=== PATIENT | male | born 1960 | race Caucasian/White ===

== ENCOUNTER 2018-09-23 01:25 | Outpatient (CLI) | payer BC, SELFPAY ==
--- NOTE | 2018-09-23 07:51 | DI.US_ITS ---
SYMPTOM/DIAGNOSIS: INFRAUMBILICAL 9TO RIGHT SIDE) PAIN SOFT TISSUE ULTRASOUND, LIMITED: 09/23 Limited soft tissue ultrasound was performed to evaluate question abdominal wall hernia in the infraumbilical and right infraumbilical region. No hernia identified by ultrasound criteria. If there is a high clinical suspicion of hernia additional evaluation with CT could be considered.
== END 2018-09-23 01:45 ==
PROVIDERS: PCP Family Medicine; Visit Provider Family Medicine
DX: R10.31 Right lower quadrant pain (principal); R10.815 Periumbilic abdominal tenderness
CPT/HCPCS: 76705

== ENCOUNTER 2019-03-24 10:10 | Outpatient (CLI) | payer BC, SELFPAY ==
[2019-03-24 12:43] LABS: Calculated LDL 148; Cholesterol 218 mg/dL (50-200); Glucose 90 mg/dL (70-100); HDL Cholesterol 57 mg/dL (40-60); Triglyceride 67 mg/dL (30-150)
[2019-03-27 10:46] LABS: PSA, Screening 0.8 ng/ml (0-3.5)
== END 2019-03-24 10:30 ==
PROVIDERS: PCP Family Medicine; Visit Provider Family Medicine
DX: Z13.1 Encounter for screening for diabetes mellitus (principal); Z13.220 Encounter for screening for lipoid disorders; Z12.5 Encounter for screening for malignant neoplasm of prostate
CPT/HCPCS: 36415; 80061; 82947; 83721; 84153

== ENCOUNTER 2019-12-04 08:11 | Emergency (ER) | payer BC, SELFPAY ==
[2019-12-04] VITALS (44 sets, daily range): BP systolic 103–156; BP diastolic 62–86; PULSE 42–61; RESP 11–20; TEMP 36.3–37; O2SAT 96–100
--- NOTE | 2019-12-04 08:15 | DI.RAD_ITS ---
EXAM: CHEST XRAY CLINICAL HISTORY: CHEST PAIN TECHNIQUE: 2D digital imaging was performed. COMPARISON: No exams were available for comparison FINDINGS: The cardiac and mediastinal contours have a normal appearance. The lungs are well inflated and clear . No infiltrate, effusion or pneumothorax is seen. No spine or rib fracture is identified. IMPRESSION: Negative chest x-ray.
[2019-12-04] MEDS: Aspirin 81 MG CHEW 324 MG CH (08:30)
[2019-12-04] MEDS: Ondansetron 4 MG/2 ML VIAL IVP (08:30)
[2019-12-04 08:32] LABS: Abs Immature Grans 0.01 k/cumm (0.0-0.09); Absolute Basophil Count 0.05 k/cumm (0.0-0.2); Absolute Eosinophil Count 0.23 k/cumm (0.0-0.7); Absolute Lymphocyte Count 2.18 k/cumm (1.2-3.4); Absolute Monocyte Count 0.61 k/cumm (0.11-0.7); Absolute Neutrophil Count 3.42 k/cumm (1.2-6.7); Basophils % 0.8; Eosinophils % 3.5; HCT 43.7 % (40.0-50.0); Immature Grans % 0.2 %; Lymphocytes % 33.5; Mean Corp. HGB Concentration 34.3 g/dL (32.0-36.0); Mean Corpuscular Hemoglobin 30.9 pg (27.0-33.0); Mean Corpuscular Volume 90.1 fL (80-95); Mean Platelet Volume 9.9 fL (8.0-11.0); Monocytes % 9.4; Neutrophils % 52.6; Platelet Count 217 x1000/uL (130-400); RBC 4.85 m/cumm (4.50-6.00); RBC Distribution Width 13.6 % (11.8-14.1)
--- NOTE | 2019-12-04 08:36 | NUR.NOTE ---
Nursing Note: 324 chewable baby ASA given at 0830, 1 nitro tab given SL at 0833, pain improved significantly per patient. Provider to fax EKG reports to [facility]. monitoring and evaluation advisor sinus jacinda HR 48. BP 115/77 after 1st nitro
--- NOTE | 2019-12-04 08:41 | NUR.NOTE ---
Nursing Note: second nitro tab given at 0840. HR remains sinus jacinda.
[2019-12-04 08:49] LABS: PTT Activated 22.2 sec (21.0-31.4); Prothrombin Time 10.5 sec (9.3-11.0)
[2019-12-04 08:51] LABS: ALT 28 U/L (16-63); AST 17 U/L (15-37); Albumin 3.9 g/dL (3.4-5.0); Alkaline Phosphatase 70 U/L (46-116); Anion Gap 9.3 mmol/L (3-11); BUN 21 mg/dL (7-18); Bilirubin, Total 0.5 mg/dL (0.2-1.0); CO2 27.7 mmol/L (21.0-32.0); CREATININE 1.25 mg/dL (0.70-1.30); Calcium 8.6 mg/dL (8.5-10.1); Chloride 105 mmol/L (98-107); Estimated GFR 59.12 (mL/min/1.73m2); Glucose 155 mg/dL (74-106); Potassium 3.4 mmol/L (3.5-5.1); Sodium 142 mmol/L (136-145); Total Protein 7.1 g/dL (6.4-8.2); Troponin I 0.05 ng/Ml (<0.06)
[2019-12-04 08:55] LABS: Magnesium 2.2 mg/dL (1.8-2.4); NT-proBNP 93 pg/mL (<300)
--- NOTE | 2019-12-04 08:59 | NUR.NOTE ---
Nursing Note: Chest pain down to 1/10 after 3rd nitro. pt c/o of nausea-- medicated with 4mg Zofran.awaiting [place] hear [place] [facility]
--- NOTE | 2019-12-04 09:00 | ED.GENADUL_ITS ---
Discharge Plan Disposition Patient Disposition: [facility] Condition: Serious Discharge Details Chief Complaint: Chest Pain Clinical Impression: Chest pain Primary Care Provider: Brain Tariq ED Provider: Jozef Herzog Home Meds and New Rx's Prescriptions: No Action multivitamin [Daily Vitamin] 1 EACH tablet 1 ea PO DAILY RF: 0 ibuprofen 200 MG capsule 3 - 4 tab PO DAILY PRNRF: 0 diphenhydramine HCl [Benadryl] 25 MG capsule 1 cap PRN PRNRF: 0 ascorbic acid (vitamin C) [Vitamin C] 500 mg Tablet 500 mg PO DAILY RF: 0 cholecalciferol (vitamin D3) [Vitamin D3] 10 mcg (400 unit) Tablet 400 unit PO DAILY RF: 0 Medical Decision Making 59-year-old gentleman who reports chest tightness, left arm discomfort that began around 7-730 this morning. He appears slightly diaphoretic. I did evaluate him upon presentation to room 4. IV access and EKG immediately obtained. EKG does reveal sinus bradycardia, ventricular rate of 56. There are some [address] elevation, peak T waves with reciprocal changes. Cardiac work-up initiated as well as a full dose aspirin and sublingual nitro 0.4?3 as needed. A call to [facility] cardiology has been placed for consultation of EKG findings and potential transfer. Upon reevaluation patient reports his pain has come down from a 6 down to a 4, heart rate of 49. He does tell me that he has been told he has a slow heart rate in the past. Blood pressure is also trending downward. Repeat EKG performed 850 reveals a sinus bradycardia, ventricular rate of 41. Continues to have [address] elevation with reciprocal changes and peaked T waves. Patient received all 3 nitros upon reevaluation reports his pain is actually resolved completely. It did come and go for short period of time but now has resolved completely. I was able to speak with cardiology [employer] INSPECTOR Jimmy. She recommended initiating heparin bolus and drip, 300 p.o. Plavix, 40 Lipitor, and potassium. Will hold on a beta-jessica given his bradycardia. If pain returns will initiate nitro drip. Plan is to transfer patient however it appears as though likely not until early afternoon. Medications ordered, plan discussed with patient and family. I was called back by MICHA Marquez, now recommends an additional 300 p.o. Plavix and they will take the patient directly to the [facility], requesting transfer now. Dr. Ivy will be the accepting. This plan was discussed with patient and family. No additional questions or concerns. All appropriate paperwork completed Medical Records Medical records reviewed: Yes I reviewed the patient's medical records. Imaging Data Radiologic Study: Attestation: I personally reviewed and interpreted this imaging study as follows: Imaging: X-Ray Radiologist's impression: Negative per radiology Lab Data Lab results reviewed: Yes I reviewed the patient's lab results. Lab results narrative: Laboratory Tests Range/Units 12/04/19 12/04/19 12/04/19 08:17 08:20 08:20 WBC (4.4-10.8) k/cumm RBC (4.50-6.00) m/cumm Hgb (13.5-17.5) g/dL Hct (40.0-50.0) % MCV (80-95) fL MCH (27.0-33.0) pg MCHC (32.0-36.0) g/dL RDW (11.8-14.1) % Plt Count (130-400) x1000/uL MPV (8.0-11.0) fL Immature Gran % % Neutrophils % Lymphocytes % Monocytes % Eosinophils % Basophils % Absolute Neutrophils (1.2-6.7) k/cumm Absolute Lymphocytes (1.2-3.4) k/cumm Absolute Monocytes (0.11-0.7) k/cumm Absolute Eosinophils (0.0-0.7) k/cumm Absolute Basophils (0.0-0.2) k/cumm PT (9.3-11.0) sec 10.5 INR (0.9-1.1) 1.0 APTT (21.0-31.4) sec 22.2 Sodium (136-145) mmol/L 142 Potassium (3.5-5.1) mmol/L 3.4 L Chloride (98-107) mmol/L 105 Carbon Dioxide (21.0-32.0) mmol/L 27.7 Anion Gap (3-11) mmol/L 9.3 BUN (7-18) mg/dL 21 H Creatinine (0.70-1.30) mg/dL 1.25 Estimated GFR/1.73 m2 (mL/min/1.73m2) 59.12 Glucose (74-106) mg/dL 155 H Calcium (8.5-10.1) mg/dL 8.6 Magnesium (1.8-2.4) mg/dL 2.2 Total Bilirubin (0.2-1.0) mg/dL 0.5 AST (15-37) U/L 17 ALT (16-63) U/L 28 Alkaline Phosphatase (46-116) U/L 70 Troponin I (<0.06) ng/Ml 0.05 NT-Pro-B Natriuret Pep (<300) pg/mL 93 Total Protein (6.4-8.2) g/dL 7.1 Albumin (3.4-5.0) g/dL 3.9 Range/Units 12/04/19 08:20 WBC (4.4-10.8) k/cumm 6.50 RBC (4.50-6.00) m/cumm 4.85 Hgb (13.5-17.5) g/dL 15.0 Hct (40.0-50.0) % 43.7 MCV (80-95) fL 90.1 MCH (27.0-33.0) pg 30.9 MCHC (32.0-36.0) g/dL 34.3 RDW (11.8-14.1) % 13.6 Plt Count (130-400) x1000/uL 217 MPV (8.0-11.0) fL 9.9 Immature Gran % % 0.2 Neutrophils % 52.6 Lymphocytes % 33.5 Monocytes % 9.4 Eosinophils % 3.5 Basophils % 0.8 Absolute Neutrophils (1.2-6.7) k/cumm 3.42 Absolute Lymphocytes (1.2-3.4) k/cumm 2.18 Absolute Monocytes (0.11-0.7) k/cumm 0.61 Absolute Eosinophils (0.0-0.7) k/cumm 0.23 Absolute Basophils (0.0-0.2) k/cumm 0.05 PT (9.3-11.0) sec INR (0.9-1.1) APTT (21.0-31.4) sec Sodium (136-145) mmol/L Potassium (3.5-5.1) mmol/L Chloride (98-107) mmol/L Carbon Dioxide (21.0-32.0) mmol/L Anion Gap (3-11) mmol/L BUN (7-18) mg/dL Creatinine (0.70-1.30) mg/dL Estimated GFR/1.73 m2 (mL/min/1.73m2) Glucose (74-106) mg/dL Calcium (8.5-10.1) mg/dL Magnesium (1.8-2.4) mg/dL Total Bilirubin (0.2-1.0) mg/dL AST (15-37) U/L ALT (16-63) U/L Alkaline Phosphatase (46-116) U/L Troponin I (<0.06) ng/Ml NT-Pro-B Natriuret Pep (<300) pg/mL Total Protein (6.4-8.2) g/dL Albumin (3.4-5.0) g/dL ECG Data Interpretation: EKG performed at 18. Reveals bradycardia, ventricular to 56. [address] elevation segments with peak T waves. Reciprocal changes present. HPI General Mode of arrival: ambulatory . Date/Time Provider Initiated Documentation: 12/04/19 08:17 . Limitations to Documentation: no limitations . Information obtained by: patient . HPI Narrative: This is a 59-year-old gentleman who presents to the ER with what he describes as centralized chest tightness which radiates to his left arm, currently a 6 out of 10. This pain began around 7-730 this morning and at that time was an 8 or 9 out of 10. He reports nausea and one episode of vomiting with this discomfort while he was driving to the ER. After vomiting he reports that his nausea resolved. There is no radiation of pain into his back. He denies any pain and does not describe the sensation as a ripping or tearing. He has a history of a hiatal hernia but does not believe this feels similarly. He reports drinking alcohol a few times a week but does not smoke. He states he had a similar episode maybe 20 years ago, had a stress test at that time, but denies any other episodes or history of cardiac disease. Denies any recent illness or trauma. Patient later tells me that he did have chest pain 2 or 3 days ago however that resolved within a matter of 5 minutes or so and did not seek medical attention at that time. Related Data Home Medications Medication Instructions Recorded Confirmed ibuprofen 3 - 4 tab PO DAILY PRN 08/04/13 12/04/19 multivitamin [Daily Vitamin] 1 ea PO DAILY 08/04/13 12/04/19 diphenhydramine HCl [Benadryl] 1 cap PRN PRN 05/17/15 12/04/19 ascorbic acid (vitamin C) [Vitamin 500 mg PO DAILY 12/04/19 12/04/19 C] cholecalciferol (vitamin D3) 400 unit PO DAILY 12/04/19 12/04/19 [Vitamin D3] Allergies Allergy/AdvReac Type Severity Reaction Status Date / Time atropine Allergy Intermediate Hives Unverified 03/24/19 09:35 diphenoxylate Allergy Intermediate Hives Unverified 03/24/19 09:35 General Stated Complaint: Chest Pain JAXON: 2 Review of Systems Constitutional Constitutional: Denies fatigue, Denies fever(s), Denies headache(s) and Denies weakness Eyes Eyes: Denies change in vision ENT Ears, Nose, Mouth, and Throat: Denies headache(s) and Denies sore throat Cardiovascular Cardiovascular: Reports chest pain, Denies edema, Denies irregular heart rhythm and Denies dyspnea Respiratory Respiratory: Denies cough and Denies dyspnea Gastrointestinal Gastrointestinal: Denies abdominal pain, Reports nausea and Reports vomiting Musculoskeletal Musculoskeletal: Denies myalgias, Denies numbness and Reports tingling (Left arm) Integumentary/Breasts Skin/Breast: Denies rash Neurologic Neurologic: Denies headache(s), Denies numbness, Reports tingling (Left arm) and Denies weakness Endocrine Endocrine: Denies fatigue [facility] Family History Brother Prostate cancer Social History Smoking/Tobacco Use Status: Never Drug use: Never Do you feel safe at home: Yes Do you feel safe in your relationship?: Yes Exam Const General: cooperative and diaphoretic (Slightly) Orientation: alert and awake HENMT Head: normal to inspection, normocephalic and atraumatic Mouth: oral mucosae normal and moist mucous membranes Throat: posterior oropharynx normal Eyes Conjunctivae: conjunctivae normal Sclera: sclerae normal Neck Neck: normal visual inspection, full ROM, trachea midline and supple Chest Chest: normal inspection of the chest Resp Effort & Inspection: normal respiratory effort and able to speak in complete sentences Auscultation: clear to auscultation bilaterally Cardio Rate: regular rate Rhythm: regular rhythm Pulses: radial pulses present, dorsalis pedis pulses present and normal peripheral pulses GI Inspection: normal to inspection Palpation: soft, not firm, no guarding, not rigid and nontender Auscultation: normal bowel sounds Skin General skin exam: no rashes or lesions noted Neuro General: alert, awake, moves all extremities and no focal motor deficits Sensory Exam: no sensory deficits noted Psych Appearance: grossly normal Mental Status: mental status grossly normal Course Vital Signs Vital signs: Vital Signs Temperature 36.3 C L 12/04/19 08:16 Pulse 55 L 12/04/19 08:16 Respiratory Rate 18 12/04/19 08:16 Blood Pressure 156/86 H 12/04/19 08:16 Pulse Oximetry 98 12/04/19 08:16 Temperature 36.3 C L 12/04/19 08:16 Temperature Source Temporal Artery Scan 12/04/19 08:16 Pulse 55 L 12/04/19 08:34 Respiratory Rate 18 12/04/19 08:34 Blood Pressure 156/86 H 12/04/19 08:34 Pulse Oximetry 98 12/04/19 08:34 Oxygen Delivery Method Room Air 12/04/19 08:34 Oxygen Flow Rate 0 12/04/19 08:34 Pain Level 8 12/04/19 08:16 Lab/Test Results Lab/Test Results: Laboratory Tests Range/Units 12/04/19 12/04/19 12/04/19 08:17 08:20 08:20 WBC (4.4-10.8) k/cumm RBC (4.50-6.00) m/cumm Hgb (13.5-17.5) g/dL Hct (40.0-50.0) % MCV (80-95) fL MCH (27.0-33.0) pg MCHC (32.0-36.0) g/dL RDW (11.8-14.1) % Plt Count (130-400) x1000/uL MPV (8.0-11.0) fL Immature Gran % % Neutrophils % Lymphocytes % Monocytes % Eosinophils % Basophils % Absolute Neutrophils (1.2-6.7) k/cumm Absolute Lymphocytes (1.2-3.4) k/cumm Absolute Monocytes (0.11-0.7) k/cumm Absolute Eosinophils (0.0-0.7) k/cumm Absolute Basophils (0.0-0.2) k/cumm PT (9.3-11.0) sec 10.5 INR (0.9-1.1) 1.0 APTT (21.0-31.4) sec 22.2 Sodium (136-145) mmol/L 142 Potassium (3.5-5.1) mmol/L 3.4 L Chloride (98-107) mmol/L 105 Carbon Dioxide (21.0-32.0) mmol/L 27.7 Anion Gap (3-11) mmol/L 9.3 BUN (7-18) mg/dL 21 H Creatinine (0.70-1.30) mg/dL 1.25 Estimated GFR/1.73 m2 (mL/min/1.73m2) 59.12 Glucose (74-106) mg/dL 155 H Calcium (8.5-10.1) mg/dL 8.6 Magnesium (1.8-2.4) mg/dL 2.2 Total Bilirubin (0.2-1.0) mg/dL 0.5 AST (15-37) U/L 17 ALT (16-63) U/L 28 Alkaline Phosphatase (46-116) U/L 70 Troponin I (<0.06) ng/Ml 0.05 NT-Pro-B Natriuret Pep (<300) pg/mL 93 Total Protein (6.4-8.2) g/dL 7.1 Albumin (3.4-5.0) g/dL 3.9 Range/Units 12/04/19 08:20 WBC (4.4-10.8) k/cumm 6.50 RBC (4.50-6.00) m/cumm 4.85 Hgb (13.5-17.5) g/dL 15.0 Hct (40.0-50.0) % 43.7 MCV (80-95) fL 90.1 MCH (27.0-33.0) pg 30.9 MCHC (32.0-36.0) g/dL 34.3 RDW (11.8-14.1) % 13.6 Plt Count (130-400) x1000/uL 217 MPV (8.0-11.0) fL 9.9 Immature Gran % % 0.2 Neutrophils % 52.6 Lymphocytes % 33.5 Monocytes % 9.4 Eosinophils % 3.5 Basophils % 0.8 Absolute Neutrophils (1.2-6.7) k/cumm 3.42 Absolute Lymphocytes (1.2-3.4) k/cumm 2.18 Absolute Monocytes (0.11-0.7) k/cumm 0.61 Absolute Eosinophils (0.0-0.7) k/cumm 0.23 Absolute Basophils (0.0-0.2) k/cumm 0.05 PT (9.3-11.0) sec INR (0.9-1.1) APTT (21.0-31.4) sec Sodium (136-145) mmol/L Potassium (3.5-5.1) mmol/L Chloride (98-107) mmol/L Carbon Dioxide (21.0-32.0) mmol/L Anion Gap (3-11) mmol/L BUN (7-18) mg/dL Creatinine (0.70-1.30) mg/dL Estimated GFR/1.73 m2 (mL/min/1.73m2) Glucose (74-106) mg/dL Calcium (8.5-10.1) mg/dL Magnesium (1.8-2.4) mg/dL Total Bilirubin (0.2-1.0) mg/dL AST (15-37) U/L ALT (16-63) U/L Alkaline Phosphatase (46-116) U/L Troponin I (<0.06) ng/Ml NT-Pro-B Natriuret Pep (<300) pg/mL Total Protein (6.4-8.2) g/dL Albumin (3.4-5.0) g/dL Critical Care Time Critical Care Time Critical Care Time: Yes Total Critical Care Time: 45 Attestation: Upon my evaluation, this patient had a high probability of clinically significant, life-threatening deterioration due to their current medical conditions, which required my direct attention, intervention, and personal management. I have personally provided greater than 30 minutes of critical care time exclusive of the time spend on separately billable procedures. Time includes obtaining a history, examining the patient, pulse oximetry, review of laboratory data, radiology results, discussion with consultants, arranging urgent treatment with development of a management plan, evaluation of patient's response to treatment, and monitoring for potential decompensation. Interventions were performed as documented above.
[2019-12-04] MEDS: Atorvastatin 40 MG TAB PO (11:28)
[2019-12-04] MEDS: Clopidogrel 300 MG TAB PO ×2 (11:29→11:44)
[2019-12-04] MEDS: Potassium Chloride 20 MEQ TABCR PO (11:29)
[2019-12-04] MEDS: Heparin 5,000 UNITS/ML VIAL 5000 UNITS IVP (11:45)
--- NOTE | 2019-12-04 12:06 | NUR.NOTE ---
Nursing Note: At 12:00 PT care report transferred to [facility] (Marsha). All PT care information, treatments, and interventions were transferred at this time. At the time of transfer the patient is alert and oriented, vitals stable. At 12:07 Pt care reports transferred to Brooklynn (RINA) with the labor contractor at [facility]. Again all Pt care information was transferred at this time.
--- NOTE | 2019-12-04 12:10 | NUR.NOTE ---
Nursing Note: At 1140 Pt reports increasing chest pain to a 5/10. Pt was administered 1 SL Nitro table prior to departure with EMS.
== END 2019-12-04 12:05 | disposition short-term general hospital (02) ==
PROVIDERS: Emergency Provider Physician Assistant; PCP Family Medicine
DX: R07.9 Chest pain, unspecified (principal); R00.1 Bradycardia, unspecified; R77.8 Other specified abnormalities of plasma proteins; R11.2 Nausea with vomiting, unspecified; R94.31 Abnormal electrocardiogram [ECG] [EKG]
CPT/HCPCS: 80053; 93005; 96365; 96375; 96376; 99291; 71046; 83735; 83880; 84484; 85025; 85610; 85730; 93010; J1644; J2405

== ENCOUNTER 2020-02-14 10:51 | Outpatient (CLI) | payer BC, SELFPAY ==
--- NOTE | 2020-02-14 11:30 | DI.RAD_ITS ---
EXAM: XR HIP RT COMPLETE AP PELVIS CLINICAL HISTORY: right hip pain, M25.551 TECHNIQUE: COMPARISON: No exams were available for comparison FINDINGS: Two views were obtained. There is mild narrowing of the cartilaginous joint spaces of both hips supe riorly. Minimal subchondral sclerosis of the acetabula noted. Findings are consistent with mild deg enerative changes. Mild DJD SI joints noted bilaterally as well. No other specific findings. IMPRESSION:
== END 2020-02-14 11:11 ==
PROVIDERS: PCP Family Medicine; Visit Provider Nurse Practitioner Family
DX: M25.551 Pain in right hip (principal); M16.0 Bilateral primary osteoarthritis of hip; M53.3 Sacrococcygeal disorders, not elsewhere classified
CPT/HCPCS: 73502

== ENCOUNTER 2021-07-12 11:42 | Emergency (ER) | payer BC, SELFPAY ==
[2021-07-12 12:14] VITALS: BP 125/80; PULSE 54; RESP 16; TEMP 36.7; O2SAT 99
--- NOTE | 2021-07-12 12:15 | DI.RAD_ITS ---
Exam(s) XR KNEE RT 3V AP,LAT,ROBERT EXAM: XR KNEE RT 3V AP,LAT,ROBERT CLINICAL HISTORY: injury. TECHNIQUE: 2D digital imaging was performed. COMPARISON: No exams were available for comparison FINDINGS: No evidence of fracture. No prominent joint effusion. Mild degenerative changes. Bone density normal. No osseous lesions IMPRESSION: No fracture evident. DATA REPOSITORY: RADIATION DOSE DELIVERED:
--- NOTE | 2021-07-12 13:24 | W.ED.GENAD ---
Discharge Plan Disposition Patient Disposition: HOME Condition: Stable Discharge Details Clinical Impression: Internal derangement of knee Primary Care Provider: Carla Otto ED Provider: Madelyn Sousa Home Meds and New Rx's Prescriptions: Continued nitroglycerin 0.4 mg tablet, sublingual 0.4 mg SL Q5-15M PRNRF: 0 lisinopril 5 mg tablet 5 mg PO DAILY RF: 0 aspirin [Adult Aspirin Regimen] 81 mg tablet,delayed release (DR/EC) 81 mg PO DAILY RF: 0 atorvastatin 80 mg tablet 80 mg PO QPM RF: 0 Brilinta 90 mg tablet 90 mg PO BID RF: 0 multivitamin [Daily Vitamin] 1 EACH tablet 1 ea PO DAILY RF: 0 cholecalciferol (vitamin D3) [Vitamin D3] 10 mcg (400 unit) Tablet 400 unit PO DAILY RF: 0 Discharge Instructions Instructions: Knee Pain (ED) Additional Instructions: Imaging is concerning for swelling as well as degenerative changes as we discussed. I am concerned about your meniscus. I would like for you to follow-up with orthopedics. Please call on Wednesday to schedule follow-up appointment. In the interim, please encourage rest, ice and elevation. You may use Tylenol as needed for discomfort. Please continue with bracing until reevaluated by orthopedics. If you develop any new or worsening symptoms care urgently once again. Referrals: Carla Otto NP [Primary Care Provider] - Discharge Data Discharge Date/Time-TO BE ENTERED AT DEPARTURE: 07/12/21 17:16 Medical Decision Making Patient is a pleasant 61-year-old male, accompanied by his , with plaints of right knee pain. Patient reports he has some discomfort in the right knee for the past week. However, this is greatly increased today when he was coming down a hill and he felt a pop. Indicates the anterior medial aspect of the knee as area of discomfort. States that this is also has been where he been having his low-level discomfort throughout the week. States that prior to today, the discomfort really limited his ability to kneel, squat to perform rotational movements. However, at today's incident, he has not been able to weight-bear at all. He denies any catching or locking. No fevers or chills. No previous surgeries. Did not actually fall, did not suffer any significant trauma. On exam, patient appears nontoxic. He does appear uncomfortable, particularly with any type of movement of the knee. However, he does seem to have difficulty getting comfortable and staying in 1 position for an extended period of time. She has 2+ distal pulses. Sensation is intact. Good range of motion the ankle. Calf is soft and nontender. He indicates the medial aspect of the knee is area of discomfort does have tenderness with palpation along the joint line of this region. No pain with patella palpation or straight leg raise. No significant effusion. Able to flex approximately 90 degrees. Ligamentously intact with varus and valgus stress testing as well as anterior posterior drawer testing. Unable perform Hafsa's exam. I do not see evidence to suggest knee dislocation. Was focal area of tenderness, pain with squatting and kneeling, I am concerned for potential meniscal injury. He has not had any catching or locking. Will give acetaminophen for discomfort and obtain x-ray to evaluate for potential bony abnormality. FINDINGS: Bones/joints: Mild diffuse patellar spurring and spurring of the femoral condyles and tibial spines. No medial or lateral marginal spurring. No suspicious bone lucency, joint effusion or joint body. There is subtle deformity of the posterolateral tibia best seen on the lateral view that may represent a very small nondisplaced fracture. Soft tissues: Normal. IMPRESSION: 1. Subtle posterolateral tibia deformity that may represent a nondisplaced acute fracture and for which unenhanced right knee CT is recommended. 2. Mild multilevel degenerative spurring. I discussed these findings with the patient. This does not really correlate with the area of discomfort. However, patient has been having such significant comfort with any type of weightbearing I feel that further evaluation would be appropriate. He and I discussed risk and benefits moving forward with the CT as recommended. He is in agreement this plan. FINDINGS: Limitations: None. Bones/joints: No acute fracture. Lateral patellofemoral joint space narrowing and sclerosis with patellofemoral degenerative spurring, greatest laterally but seen at other levels. Minimal weightbearing femoral degenerative spurring. There are a few calcified bodies in the posterolateral knee measuring up to 3 mm and approaching the tibiofibular joint. No suspicious bone lucency. Very small non layering knee joint effusion. Soft tissues: Normal. Vasculature: Scattered peripheral arterial calcification proximal and distal to the level of the knee. IMPRESSION: 1. Negative for fracture. No fracture in the posterolateral tibia. 2. Small knee joint effusion, patellofemoral degenerative change with mild lateral subluxation, also very mild weight-bearing knee degenerative spurring and small calcified joint bodies in the posterolateral knee region 3. Incidentally noted peripheral arterial disease. Discussed the findings with the patient. I advised that I remain concerned for potential meniscal injury. Diagnosed with internal derangement at this time. I advised that his exam may be able to be more thorough after his initial discomfort has subsided some. I encouraged rest, ice, elevation. He will continue with Tylenol as needed for discomfort. Patient is anticoagulated and I did advise against continuing the ibuprofen. We will place in a hinged knee brace for support. I advised that he follow-up with orthopedics. He will call Wednesday to schedule follow-up appointment. Advised that he may use crutches as needed to help with comfort with ambulation. However, and hoping that the hinged knee brace will patient in alleviating his discomfort. Return precautions were discussed. All questions and concerns were addressed and he is in agreement with plan. HPI General Mode of arrival: ambulatory. Date/Time Provider Initiated Documentation: 07/12/21 11:52. Limitations to Documentation: no limitations. Information obtained by: patient, family () and RN notes reviewed. History of Present Illness 61 year old M presents to the emergency department with the chief complaint of right knee pain, described as severe, with intensity rated at 8. Quality is described as aching, and is localized to the right and lower extremity. Patient reports no radiation. Patient started experiencing this week(s) (1) and it has been constant. Immobilization improves symptom(s), Movement worsens symptoms . Patient notes no other symptoms.. Patient did receive the following treatments prior to arrival, NSAID Related Data Home Medications Medication Instructions Recorded Confirmed multivitamin [Daily Vitamin] 1 ea PO DAILY 08/04/13 07/12/21 cholecalciferol (vitamin D3) 400 unit PO DAILY 12/04/19 07/12/21 [Vitamin D3] aspirin 81 mg tablet,delayed 81 mg PO DAILY 02/14/20 07/12/21 release atorvastatin 80 mg tablet 80 mg PO QPM 02/14/20 07/12/21 lisinopril 5 mg tablet 5 mg PO DAILY 02/14/20 07/12/21 ticagrelor 90 mg tablet 90 mg PO BID 02/14/20 07/12/21 nitroglycerin 0.4 mg sublingual 0.4 mg SL Q5-15M PRN 04/16/20 07/12/21 tablet Allergies Allergy/AdvReac Type Severity Reaction Status Date / Time atropine Allergy Intermediate Hives Verified 07/12/21 12:19 diphenoxylate Allergy Intermediate Hives Verified 07/12/21 12:19 General Stated Complaint: Orthopedic JAXON: 4 Review of Systems Constitutional Constitutional: Reports as per HPI, Denies chills, Denies fever(s), Denies headache(s) and Denies weakness ENT Ears, Nose, Mouth, and Throat: Denies headache(s) Respiratory Respiratory: Reports as per HPI and Denies cough Musculoskeletal Musculoskeletal: Reports as per HPI and Denies tingling Integumentary/Breasts Skin/Breast: Reports as per HPI, Denies rash and Denies wounds Neurologic Neurologic: Reports as per HPI, Denies headache(s), Denies tingling, Denies paresthesias and Denies weakness [facility] Medical History (Updated 07/12/21 @ 16:14 by DANIELLE Cameron) CAD (coronary artery disease) NSTEMI 12/2019, s/p NYA to LAD and RPDA. Followed by [facility] Cardiology Hyperlipidemia Major depressive disorder NSTEMI (non-ST elevated myocardial infarction) (~12/2019) Cardiac cath showed total occlusion of LAD, 60-70% lesion of RPDA s/p stent Stented coronary artery NYA to LAD and RPDA Surgical History History of percutaneous coronary intervention (12/04/19) NYA to mid segment of LAD and RPDA Family History Brother Prostate cancer Social History Smoking/Tobacco Use Status: Never Smoking risk assessment performed?: Yes Alcohol Intake: current Alcohol Intake frequency: a few times a month Alcohol type: beer and wine Drug use: Never Substance use type: does not use Do you feel safe at home: Yes Do you feel safe in your relationship?: Yes Exam Const General: cooperative, healthy appearing, uncomfortable, no acute distress, well developed and well groomed Nutritional Appearance: average body habitus and well nourished Orientation: alert and awake Resp Effort & Inspection: normal respiratory effort, able to speak in complete sentences and no respiratory distress Cardio Rate: regular rate Rhythm: regular rhythm Skin General skin exam: no rashes or lesions noted Lesions: no lesions Rashes: no rashes Trauma: no lacerations or abrasions Neuro General: patient alert and patient awake Cognition: normal cognition Speech: speech normal Motor: muscle tone normal throughout Sensory Exam: no sensory deficits noted Extrem Knee images: 1. Area of discomfort. Patient has 2+ distal pulses. Sensation is intact. Full range of motion the ankle. Calf is soft and nontender. No palpable cord. Patient is full extension of the knee. Flexion is limited to approximately 90 degrees. No significant effusion. No erythema or warmth over the knee. He is point tender over this area. He is intact with varus valgus stress testing as well as [place] exam. I was unable to complete Hafsa's exam secondary to discomfort. He is able to straight leg raise. No pain on palpation over the patella. No palpable deformity. Psych Appearance: grossly normal and well kempt Mental Status: mental status grossly normal Speech and Movement: speech and movement normal Course Vital Signs Vital signs: Vital Signs Temperature 36.7 C 07/12/21 12:14 Pulse 54 L 07/12/21 12:14 Respiratory Rate 16 07/12/21 12:14 Blood Pressure 125/80 07/12/21 12:14 Pulse Oximetry 99 07/12/21 12:14 Temperature 36.7 C 07/12/21 12:14 Temperature Source Tympanic 07/12/21 12:14 Pulse 54 L 07/12/21 12:14 Respiratory Rate 16 07/12/21 12:14 Respiratory Effort Non-Labored 07/12/21 12:17 Blood Pressure 125/80 07/12/21 12:14 Blood Pressure Position Sitting 07/12/21 12:14 Pulse Oximetry 99 07/12/21 12:14 Oxygen Delivery Method Room Air 07/12/21 12:14 Oxygen Flow Rate 0 07/12/21 12:14 Pain Level 8 07/12/21 12:14 PAWSS Have you Been Recently Intoxicated or Drunk Within the Last 30 days?: No Have you Ever Experienced Previous Episodes of Alcohol Withdrawal?: No Have you ever Experienced Withdrawal Seizures?: No Have you ever Experienced Delirium Tremens(DT)s?: No Have you ever undergone Alcohol Rehabilitation Treatment (i.e, inpt ot outpatient treatment programs)?: No Have you ever Experienced Blackouts?: No Have you ever Combined Alcohol with other Downers within the last 90 days?: No Have you ever Combined Alcohol with any other Substance of Abuse during the last 90 days?: No Positive Blood Alcohol level on Presentation? [PCS.BAL]: No Evidence of Increased Autonomic Activity (i.e. HR>120, tremor, sweating, agitation, nausea)?: No Result: 0
[2021-07-12] MEDS: Acetaminophen 500 MG TAB 1000 MG PO (14:01)
--- NOTE | 2021-07-12 14:11 | DI.VRAD_ITS ---
PROCEDURE INFORMATION: Exam: XR Right Knee Exam date and time: 07/12/2021 12:24 PM Age: 61 years old Clinical indication: Patient HX: Injury trauma, right knee TECHNIQUE: Imaging protocol: XR Right knee. Views: 3 views. COMPARISON: No relevant prior studies available. FINDINGS: Bones/joints: Mild diffuse patellar spurring and spurring of the femoral condyles and tibial spines. No medial or lateral marginal spurring. No suspicious bone lucency, joint effusion or joint body. There is subtle deformity of the posterolateral tibia best seen on the lateral view that may represent a very small nondisplaced fracture. Soft tissues: Normal. IMPRESSION: 1. Subtle posterolateral tibia deformity that may represent a nondisplaced acute fracture and for which unenhanced right knee CT is recommended. 2. Mild multilevel degenerative spurring. Dictated and Authenticated by: Daniel Hernandez MD. Ordering:[email or web address].VERNON Provider Temporary
--- NOTE | 2021-07-12 14:15 | DI.CT_ITS ---
Exam(s) CT LOWER EXTREMITY RT WO EXAM: CT LOWER EXTREMITY RT WO CLINICAL HISTORY: medial pain, further eval after xr abnormality. TECHNIQUE: Imaging Protocol: Axial computed tomography images with coronal and sagittal reformatted images were created and reviewed. CONTRAST MATERIAL: Intravenous: None COMPARISON: X-rays earlier same day FINDINGS: There is no evidence of fracture. There are moderate degenerative changes in the medial compartment. More advanced degenerative changes in the patellofemoral compartment. There is a joint effusion no lupe. No significant osseous lesions. Vascular calcification noted. IMPRESSION: No fracture evident. However, there does appear to be a joint effusion. This may signify an internal derangement. Clinic ally indicated follow-up MRI can be performed for added sensitivity and specificity. RADIATION DOSE DELIVERED: 340.59mGy.cm Total DLP DATA REPOSITORY: All CT scans at this facility are submitted to the National Radiology Data Registry (NRDR) Dose Index Registry (DIR) with the [employer] ([employer]). RADIATION OPTIMIZATION: All CT scans at this facility use at least one of these dose optimization te chniques: automated exposure control; mA and/or kV adjustment per patient size (includes targeted exa ms where dose is matched to clinical indication); or iterative reconstruction.
--- NOTE | 2021-07-12 15:25 | DI.VRAD_ITS ---
PROCEDURE INFORMATION: Exam: CT Right Lower Extremity Without Contrast, Knee Exam date and time: 07/12/2021 2:20 PM Age: 61 years old Clinical indication: Pain; Knee; Right; Patient HX: CT recommended by vrad to f/u possible abnormality seen on x-ray. TECHNIQUE: Imaging protocol: CT of the Right lower extremity without contrast was performed. Exam focused on the knee. Radiation optimization: All CT scans at this facility use at least one of these dose optimization techniques: automated exposure control; mA and/or kV adjustment per patient size (includes targeted exams where dose is matched to clinical indication); or iterative reconstruction. COMPARISON: CR XR KNEE RT 3V AP,LAT,ROBERT 07/12/2021 12:42 PM FINDINGS: Limitations: None. Bones/joints: No acute fracture. Lateral patellofemoral joint space narrowing and sclerosis with patellofemoral degenerative spurring, greatest laterally but seen at other levels. Minimal weight-bearing femoral degenerative spurring. There are a few calcified bodies in the posterolateral knee measuring up to 3 mm and approaching the tibiofibular joint. No suspicious bone lucency. Very small non layering knee joint effusion. Soft tissues: Normal. Vasculature: Scattered peripheral arterial calcification proximal and distal to the level of the knee. IMPRESSION: 1. Negative for fracture. No fracture in the posterolateral tibia. 2. Small knee joint effusion, patellofemoral degenerative change with mild lateral subluxation, also very mild weight-bearing knee degenerative spurring and small calcified joint bodies in the posterolateral knee region 3. Incidentally noted peripheral arterial disease. Dictated and Authenticated by: Daniel Hernandez MD. Ordering:AZIZA Joshi MD
[2021-07-12 15:51] VITALS: BP 117/70; PULSE 57; RESP 16; TEMP 36.6; O2SAT 95
== END 2021-07-12 17:16 | disposition home or self-care (01) ==
PROVIDERS: Emergency Provider Physician Assistant; PCP Nurse Practitioner Family
DX: M23.8X1 Other internal derangements of right knee (principal)
CPT/HCPCS: 73562; 99284; 73700; 99283

== ENCOUNTER 2022-04-01 12:24 | Emergency (ER) | payer BC, SELFPAY ==
[2022-04-01] VITALS (35 sets, daily range): BP systolic 116–136; BP diastolic 58–72; PULSE 48–62; RESP 9–21; TEMP 36.5; O2SAT 95–100
--- NOTE | 2022-04-01 12:30 | RT.EKG_ITS ---
APPROVED REPORT Exam: Resting ECG Reason for Exam: chest pain Patient Location: E HR:55 bpm ECG Measurements Heart Rate 55 AXIS AZ 198 P 19 QRSd 104 QRS -4 QT 477 T 17 QTc 455 Conclusion Sinus bradycardia...rate< 60
[2022-04-01] MEDS: Meclizine 25 MG TAB PO (13:09)
[2022-04-01] MEDS: Ondansetron 4 MG/2 ML VIAL IVP (13:09)
[2022-04-01 13:10] LABS: Abs Immature Grans 0.04 10^3/uL (0.0-0.06); Absolute Basophil Count 0.06 10^3/uL (0.0-0.2); Absolute Eosinophil Count 0.28 10^3/uL (0.0-0.7); Absolute Lymphocyte Count 2.56 10^3/uL (1.2-3.4); Absolute Monocyte Count 0.81 10^3/uL (0.1-0.8); Absolute Neutrophil Count 4.85 10^3/uL (1.2-6.7); Basophils % 0.7; Eosinophils % 3.3; HCT 43.5 % (40.0-50.0); HGB 14.8 g/dL (13.5-17.5); Immature Grans % 0.5; Lymphocytes % 29.8; MCH 30.7 pg (27.0-33.0); MCV 90 fL (80-95); Monocytes % 9.4; Neutrophils % 56.3; Platelet Count 202 10^3/uL (130-400); RBC 4.82 10^6/uL (4.36-5.78); RDW-SD 43.1 fL
[2022-04-01 13:28] LABS: ALT 33 U/L (16-63); AST 23 U/L (15-37); Albumin 4.2 g/dL (3.4-5.0); Alkaline Phosphatase 76 U/L (46-116); Anion Gap 11.2 mmol/L (3-11); BUN 19 mg/dL (7-18); Bilirubin, Total 0.9 mg/dL (0.2-1.0); CO2 24.8 mmol/L (21.0-32.0); CREATININE 0.9 mg/dL (0.70-1.30); Calcium 9.2 mg/dL (8.5-10.1); Chloride 102 mmol/L (98-107); Glucose 117 mg/dL (74-106); Magnesium 2.1 mg/dL (1.8-2.4); Potassium 3.3 mmol/L (3.5-5.1); Sodium 138 mmol/L (136-145); Total Protein 7.5 g/dL (6.4-8.2); Troponin I < 50 ng/L (<or=60)
--- NOTE | 2022-04-01 13:47 | DI.CT_ITS ---
Exam(s) CT HEAD WO EXAM: CT HEAD WO CLINICAL HISTORY: Dizziness, left arm numbness. TECHNIQUE: Imaging Protocol: Axial computed tomography images with coronal and sagittal reformatted images were created and reviewed COMPARISON: No exams were available for comparison FINDINGS: The ventricular system is normal in appearance. No evidence of acute intracranial hemorrhage, mass effect, or midline shift. The orbital structures are unremarkable. The temporal bone structures appear intact. Calvarium: Normal. Visualized Paranasal sinuses/Mastoids: Clear. IMPRESSION: Normal cranial CT. RADIATION DOSE DELIVERED: 901.09mGy.cm Total DLP 901.09mGy.cm Total DLP !Error CTDIvol DATA REPOSITORY: All CT scans at this facility are submitted to the National Radiology Data Registry (NRDR) Dose Index Registry (DIR) with the [employer] (ACR). RADIATION OPTIMIZATION: All CT scans at this facility use at least one of these dose optimization te chniques: automated exposure control; mA and/or kV adjustment per patient size (includes targeted exa ms where dose is matched to clinical indication); or iterative reconstruction.
[2022-04-01] MEDS: POTASSIUM CHLORIDE 20 MEQ, POTASSIUM CHLORIDE 10 MEQ 30 MEQ PO (14:48)
[2022-04-01] MEDS: Normal Saline 500 ML 1000 ML IV (14:51)
[2022-04-01 15:45] LABS: Troponin I < 50 ng/L (<or=60)
--- NOTE | 2022-04-01 16:02 | ED.GENADUL_ITS ---
Discharge Plan Disposition Patient Disposition: HOME Condition: Stable Discharge Details Clinical Impression: Benign paroxysmal positional vertigo Primary Care Provider: Carla Otto ED Provider: Archie Arshad Home Meds and New Rx's Prescriptions: New meclizine 25 mg tablet 25 - 50 mg PO TID PRN (Reason: dizziness) Qty: 20 0RF ondansetron 4 mg tablet,disintegrating 4 mg PO Q6H PRN (Reason: nausea and vomiting) Qty: 10 0RF No Action nitroglycerin 0.4 mg tablet, sublingual 0.4 mg SL Q5-15M PRN Rx Instructions: do not exceed 3 doses per episode lisinopril 5 mg tablet 5 mg PO DAILY aspirin [Adult Aspirin Regimen] 81 mg tablet,delayed release (DR/EC) 81 mg PO DAILY atorvastatin 80 mg tablet 80 mg PO QPM Brilinta 90 mg tablet 90 mg PO BID multivitamin [Daily Vitamin] 1 EACH tablet 1 ea PO DAILY cholecalciferol (vitamin D3) [Vitamin D3] 10 mcg (400 unit) Tablet 400 unit PO DAILY Discharge Instructions Additional Instructions: Feel free to return to the emergency department for any new or significant worsening of symptoms otherwise take medication as needed stay well-hydrated and get plenty of rest. Over the next 3 days please refrain from any rapid position changes or twisting motion of your head or body. Please follow-up with your primary care provider in the next week for reassessment if not improving. Referrals: Carla Otto, ASSOCIATE PROFESSOR OF MANAGEMENT [Primary Care Provider] - 1 week (As needed for reassessment) Discharge Data Discharge Date/Time-TO BE ENTERED AT DEPARTURE: 04/01/22 16:31 Medical Decision Making Patient presenting to emergency department for chief complaint of dizziness, nausea, and some chest discomfort radiating down the left arm. He states that this all started when attempting to get up from a seated position during a meeting. Patient does state significant cardiac history with stent placement. Physical exam shows a acutely ill individual with significant nausea with any movement. If patient remains still symptoms are better. Physical exam is otherwise unremarkable. Suspect vertigo but given patient's cardiac history with chest pain radiating down arm for a brief moment and dizziness will perform screening labs including troponin, EKG, and head CT scan given vascular history. Pending results we will give Zofran and meclizine along with IV fluids. Please see physician interpretation for full interpretation of EKG but patient appears to be in sinus bradycardia with no worrisome acute ischemic findings. Review of labs show unremarkable CBC, CMP with slightly low potassium, low elevated anion gap and BUN otherwise unremarkable CMP with nondetectable troponin although labs are unremarkable. Will replete low potassium with oral potassium Review of CT scan and speaking with radiologist Head CT is unremarkable for acute findings. Patient reassessed and is significantly more improved. Hints exam was performed at this time and is positive for peripheral source with lateralization to the left ear. Do not feel that any further imaging or work-up is needed. Still do still plan on performing delta troponin due to cardiac history Delta troponin is also nondetectable. Patient reassessed and states continued improvement. Patient was prescribed Zofran and meclizine also discussed with patient close monitoring of symptoms along with return and follow-up precautions. After discussion of diagnosis and plan of care patient has no further needs, questions, or concerns and states clear understanding to return to the emergency department for any worsening symptoms. This documentation was generated using [employer] dictation system, please disregard any oddities of phrase or misspellings. Imaging Data Radiologic Study: Imaging: CT Scan Radiologist's impression: FINDINGS: The ventricular system is normal in appearance. No evidence of acute intracranial hemorrhage, mass effect, or midline shift. The orbital structures are unremarkable. The temporal bone structures appear intact. Calvarium: Normal. Visualized Paranasal sinuses/Mastoids: Clear. IMPRESSION: Normal cranial CT. HPI General Mode of arrival: ambulatory . Date/Time Provider Initiated Documentation: 04/01/22 12:50 . Limitations to Documentation: no limitations . Information obtained by: patient and RN notes reviewed . History of Present Illness 62 year old M presents to the emergency department with the chief com plaint of Dizziness, slight chest tightness, nausea, described as moderate, with intensity rated at 1. Quality is described as dull, and is localized to the chest. Patient reports no radiation. Patient started experiencing this hour(s) (1) and it has been constant. No relieving factors improve symptom(s), Movement worsens symptoms (getting up from table) . Patient did receive the following treatments prior to arrival, none Related Data Home Medications Medication Instructions Recorded Confirmed multivitamin (Daily Vitamin tablet) 1 ea PO DAILY 08/04/13 04/03/22 cholecalciferol (vitamin D3) 10 400 unit PO DAILY 12/04/19 04/03/22 mcg (400 unit) tablet (Vitamin D3) aspirin 81 mg tablet,delayed 81 mg PO DAILY 02/14/20 04/03/22 release (Adult Aspirin Regimen) atorvastatin 80 mg tablet 80 mg PO QPM 02/14/20 04/03/22 lisinopril 5 mg tablet 5 mg PO DAILY 02/14/20 04/03/22 ticagrelor 90 mg tablet (Brilinta) 90 mg PO BID 02/14/20 04/03/22 nitroglycerin 0.4 mg sublingual 0.4 mg sublingual Q5-15M PRN 04/16/20 04/03/22 tablet meclizine 25 mg tablet 25 - 50 mg PO TID PRN dizziness 04/01/22 04/03/22 #20 tabs ondansetron 4 mg disintegrating 4 mg PO Q6H PRN nausea and 04/01/22 04/03/22 tablet vomiting #10 tabs Previous Rx's Medication Instructions Recorded meclizine 25 mg tablet 25 - 50 mg PO TID PRN dizziness 04/01/22 #20 tabs ondansetron 4 mg disintegrating 4 mg PO Q6H PRN nausea and 04/01/22 tablet vomiting #10 tabs Allergies Allergy/AdvReac Type Severity Reaction Status Date / Time atropine Allergy Intermediate Hives Verified 04/03/22 12:52 diphenoxylate Allergy Intermediate Hives Verified 04/03/22 12:52 General Stated Complaint: Chest Pain JAXON: 4 Review of Systems Constitutional Constitutional: Denies chills, Denies fever(s), Denies frequent falls and Denies headache(s) Eyes Eyes: Denies change in vision and Denies loss of vision ENT Ears, Nose, Mouth, and Throat: Reports dizziness, Denies ear discharge, Denies otalgia, Denies facial pain, Denies headache(s), Reports hearing loss and Denies neck pain Cardiovascular Cardiovascular: Reports chest pain, Denies syncope, Denies rapid heart rate and Denies dyspnea Respiratory Respiratory: Denies dyspnea Gastrointestinal Gastrointestinal: Denies abdominal pain, Reports nausea and Denies vomiting Musculoskeletal Musculoskeletal: Denies abnormal gait, Denies back pain, Denies muscle weakness, Denies neck pain, Denies numbness and Denies tingling Integumentary/Breasts Skin/Breast: Denies rash Neurologic Neurologic: Reports as per HPI, Denies abnormal gait, Denies confusion, Reports dizziness, Denies syncope, Denies frequent falls, Denies headache(s), Denies localized weakness, Denies loss of vision, Denies memory loss, Denies numbness, Denies convulsions and Denies tingling Psychiatric Psychiatric: Denies confusion and Denies memory loss [facility] All Active Problems Benign paroxysmal positional vertigo (Acute) Internal derangement of knee (Acute) Hyperlipidemia (Chronic) CAD (coronary artery disease) (Chronic) NSTEMI 12/2019, s/p NYA to LAD and RPDA. [place] [facility] [place] Major depressive disorder (Chronic) Medical History NSTEMI (non-ST elevated myocardial infarction) (~12/2019) Cardiac cath showed total occlusion of LAD, 60-70% lesion of RPDA s/p stent Surgical History History of percutaneous coronary intervention (12/04/19) NYA to mid segment of LAD and RPDA S/P bilateral inguinal hernia repair S/P vasectomy Family History Mother Heart disease Father , 95 Heart disease Myocardial infarction Brother No problems noted. Brother Prostate cancer Sister Heart disease Myocardial infarction Sister Cancer Sister Diabetes Son No problems noted. Son , 24 from ski accident No problems noted. Son Type 1 diabetes mellitus Daughter Meniere syndrome Daughter No problems noted. Maternal Grandfather No problems noted. Maternal Grandmother Heart disease Paternal Grandfather Heart disease Myocardial infarction Paternal Grandmother No problems noted. Social History Smoking/Tobacco Use Status: Never Second Hand Exposure: Yes Smoking risk assessment performed?: Yes Alcohol Intake: current Alcohol Intake frequency: a few times a week Alcohol type: beer and wine Drug use: Never Substance use type: does not use Caregiver/Support person: No Household members: spouse and children Housing: house Communication Needs: None Do you need help understanding health information?: Rarely Pets and animals: Yes Pets and animals: cat(s) and dog(s) Sexually active: Yes Do you think of yourself as: straight/heterosexual Current gender identity: male What is your relationship status?: How often do you talk on the phone with friends or family?: once per week How often do you attend temple or evangelical services?: 4 or more times per year Do you belong to any clubs or organized social groups?: yes Panel score (0-1 are the most socially isolated patients): 3 What type of physical activity do you participate in: walking Duration: 15-30 minutes/day Frequency: 3-4 times per week Francisca/Rastafari: Buddhist Special francisca needs: No Seatbelt use: always Drive intox or ride w/intox peg driver: No Do you feel safe at home: Yes Do you feel safe in your relationship?: Yes Exam Const General: cooperative and well groomed Orientation: alert, awake and oriented x3 HENMT Head: normal to inspection Ears: TM normal on the right and hearing grossly impaired on the left Face and sinus: normal facial exam Mouth: oral mucosae normal and moist mucous membranes Throat: posterior oropharynx normal Eyes Visual Pisano: normal visual pisano by confrontation Alignment and Position: alignment normal Periorbital: periorbital findings normal Eyelids: eyelids normal Sclera: sclerae normal Cornea: corneas normal Pupils: PERRL EOM: EOM intact bilaterally and nystagmus Neck Neck: normal visual inspection, full ROM, no lymphadenopathy and no meningeal signs Resp Effort & Inspection: normal respiratory effort and able to speak in complete sentences Auscultation: clear to auscultation bilaterally Cardio Rate: regular rate Rhythm: regular rhythm Heart Sounds: S1 normal and S2 normal Neuro General: patient alert, patient awake, patient oriented x3, gait normal, tone normal, moves all extremities, CN's II-XI intact bilaterally and not confused Cranial Nerves: nystagmus Cognition: normal cognition Speech: speech normal Motor: muscle tone normal throughout, strength 5/5 throughout, no pronator dri ft, no movement abnormalities noted and no fasciculations Sensory Exam: no sensory deficits noted Course Vital Signs Vital signs: Vital Signs Temperature 36.5 C 04/01/22 12:25 Pulse 57 L 04/01/22 12:25 Respiratory Rate 16 04/01/22 12:25 Blood Pressure 127/72 04/01/22 12:25 Pulse Oximetry 100 04/01/22 12:25 Temperature 36.5 C 04/01/22 12:25 Temperature Source Temporal Artery Scan 04/01/22 12:25 Pulse 52 L 04/01/22 15:30 Pulse 53 L 04/01/22 15:40 Respiratory Rate 15 04/01/22 15:40 Respiratory Effort Non-Labored 04/01/22 12:48 Respiratory Depth Normal 04/01/22 12:48 Respiratory Pattern Normal 04/01/22 12:48 Blood Pressure 122/65 04/01/22 15:30 Blood Pressure Mean 78 04/01/22 15:30 Blood Pressure Position Supine 04/01/22 12:25 Pulse Oximetry 99 04/01/22 15:40 Oxygen Delivery Method Room Air 04/01/22 12:25 Oxygen Flow Rate 0 04/01/22 12:25 Pain Level 1 04/01/22 12:25 Lab/Test Results Lab/Test Results: Laboratory Tests Range/Units 04/01/22 04/01/22 04/01/22 12:10 12:10 15:09 WBC (4.4-10.8) 10^3/uL 8.60 RBC (4.36-5.78) 10^6/uL 4.82 Hgb (13.5-17.5) g/dL 14.8 Hct (40.0-50.0) % 43.5 MCV (80-95) fL 90 MCH (27.0-33.0) pg 30.7 MCHC (32.0-36.0) % 34.0 RDW (11.8-14.1) % 13.0 Plt Count (130-400) 10^3/uL 202 MPV (8.0-11.0) fL 10.0 Immature Gran % 0.5 Neutrophils % 56.3 Lymphocytes % 29.8 Monocytes % 9.4 Eosinophils % 3.3 Basophils % 0.7 Nucleated RBC % (0.0-0.3) % 0.0 Absolute Neutrophils (1.2-6.7) 10^3/uL 4.85 Absolute Lymphocytes (1.2-3.4) 10^3/uL 2.56 Absolute Monocytes (0.1-0.8) 10^3/uL 0.81 H Absolute Eosinophils (0.0-0.7) 10^3/uL 0.28 Absolute Basophils (0.0-0.2) 10^3/uL 0.06 Sodium (136-145) mmol/L 138 Potassium (3.5-5.1) mmol/L 3.3 L Chloride (98-107) mmol/L 102 Carbon Dioxide (21.0-32.0) mmol/L 24.8 Anion Gap (3-11) mmol/L 11.2 H BUN (7-18) mg/dL 19 H Creatinine (0.70-1.30) mg/dL 0.9 Estimated GFR/1.73 m2 (mL/min/1.73m2) >= 60.00 Glucose (74-106) mg/dL 117 H Calcium (8.5-10.1) mg/dL 9.2 Magnesium (1.8-2.4) mg/dL 2.1 Total Bilirubin (0.2-1.0) mg/dL 0.9 AST (15-37) U/L 23 ALT (16-63) U/L 33 Alkaline Phosphatase (46-116) U/L 76 Troponin I (<or=60) ng/L < 50 < 50 Total Protein (6.4-8.2) g/dL 7.5 Albumin (3.4-5.0) g/dL 4.2
== END 2022-04-01 16:31 | disposition home or self-care (01) ==
PROVIDERS: Emergency Provider Nurse Practitioner Family; PCP Nurse Practitioner Family
DX: H81.10 Benign paroxysmal vertigo, unspecified ear (principal); R07.9 Chest pain, unspecified; R42 Dizziness and giddiness; R20.2 Paresthesia of skin
CPT/HCPCS: 36415; 80053; 93005; 96361; 96374; 99284; 70450; 83735; 84484; 85025; 93010; J2405

== ENCOUNTER 2022-06-22 14:40 | Outpatient (CLI) | payer BC, SELFPAY ==
--- NOTE | 2022-06-22 14:30 | RT.EKG_ITS ---
APPROVED REPORT Exam: Resting ECG Reason for Exam: dizzy Patient Location: O HR:48 bpm ECG Measurements Heart Rate 48 AXIS LA 194 P -4 QRSd 92 QRS 0 QT 466 T 26 QTc 417 Conclusion Sinus bradycardia...rate< 50 Probable left atrial enlargement...P >50mS, <-0.10mV V1 RSR' in V1 or V2, probably normal variant...small R' only
== END 2022-06-22 14:41 | disposition home or self-care (01) ==
LOC: DI.CM 14:40
PROVIDERS: PCP Nurse Practitioner Family; Visit Provider Nurse Practitioner Family
DX: R42 Dizziness and giddiness (principal); I25.10 Atherosclerotic heart disease of native coronary artery without angina pectoris; I25.2 Old myocardial infarction; R00.1 Bradycardia, unspecified
CPT/HCPCS: 93010

== ENCOUNTER 2022-06-22 16:10 | Emergency (ER) | payer BC, SELFPAY ==
--- NOTE | 2022-06-22 16:15 | RT.EKG_ITS ---
APPROVED REPORT Exam: Resting ECG Reason for Exam: dizzy, n/v Patient Location: E HR:48 bpm ECG Measurements Heart Rate 48 AXIS ME 185 P 26 QRSd 114 QRS 6 QT 470 T 42 QTc 421 Conclusion Sinus bradycardia...rate< 60
[2022-06-22 16:19] VITALS: BP 145/76; PULSE 55; RESP 18; TEMP 36.4; O2SAT 99
--- NOTE | 2022-06-22 16:38 | ED.GENADUL_ITS ---
Discharge Plan Disposition Patient Disposition: HOME Condition: Improving Discharge Details Clinical Impression: Labyrinthitis of left ear Primary Care Provider: Carla Otto ED Provider: Juan Alberto Ohara Home Meds and New Rx's Prescriptions: New prednisone 50 mg tablet 50 mg PO DAILY 5 Days Qty: 5 0RF Continued nitroglycerin 0.4 mg tablet, sublingual 0.4 mg SL Q5-15M PRN Rx Instructions: do not exceed 3 doses per episode lisinopril 5 mg tablet 5 mg PO DAILY aspirin [Adult Aspirin Regimen] 81 mg tablet,delayed release (DR/EC) 81 mg PO DAILY atorvastatin 80 mg tablet 80 mg PO QPM Brilinta 90 mg tablet 90 mg PO BID multivitamin [Daily Vitamin] 1 EACH tablet 1 ea PO DAILY cholecalciferol (vitamin D3) [Vitamin D3] 10 mcg (400 unit) Tablet 400 unit PO DAILY meclizine 25 mg tablet 25 - 50 mg PO TID PRN (Reason: dizziness) Qty: 20 0RF ondansetron 4 mg tablet,disintegrating 4 mg PO Q6H PRN (Reason: nausea and vomiting) Qty: 10 0RF Discontinued amoxicillin-pot clavulanate 875-125 mg tablet 1 tab PO Q12H Qty: 14 0RF Discharge Instructions Instructions: Labyrinthitis (ED) Additional Instructions: Please take prednisone as prescribed. Continue all of your regularly prescribed medications. Return to the ER for any acute concerns. Medical Decision Making 62-year-old male states he has been struggling with a sinus infection since March. He states he recently completed a 10-day course of Augmentin for this. Today he was at work, was talking to a coworker and then when he turned to walk away immediately felt woozy and nauseated without emesis, no syncope, no chest pain. He did not have a loss of consciousness and has not had a headache. This recurred a couple of times today and was brief and self resolving. No recent illness other than the above sinus infection. No facial droop, no difficulty with speech, gait, motor function. Patient's vital signs are unremarkable and his exam does reveal a distended left tympanic membrane. Must consider persistent sinusitis within the differential diagnosis. Additionally, this does not appear to be consistent with acute coronary syndrome, but given the patient's history we will check troponin and EKG.. Patient had screening IV access established, screening laboratories obtained. Patient referred for CT scan of the head and sinuses. Laboratories are reassuring. CT imaging negative for acute cranial findings and no evidence of sinusitis. Patient is improved with meclizine. Discussed with him that a small burst of prednisone may assist in concrete in his vertiginous- like symptoms. He is stable and appropriate for discharge to home. Lab Data Lab results reviewed: Yes I reviewed the patient's lab results. Labs: Laboratory Results - last 24 hr 06/22/22 06/22/22 16:45 16:45 WBC 10.74 RBC 4.52 Hgb 14.2 Hct 41.1 MCV 91 MCH 31.4 MCHC 34.5 RDW 13.2 Plt Count 194 MPV 9.8 Immature Gran % 0.3 Neutrophils % 86.7 Lymphocytes % 7.9 Monocytes % 4.1 Eosinophils % 0.5 Basophils % 0.5 Nucleated RBC % 0.0 Absolute Neutrophils 9.32 H Absolute Lymphocytes 0.85 L Absolute Monocytes 0.44 Absolute Eosinophils 0.05 Absolute Basophils 0.05 Sodium 138 Potassium 3.6 Chloride 101 Carbon Dioxide 28.5 Anion Gap 8.5 BUN 22 H Creatinine 0.9 Est GFR (CKD-EPI 2020) 96.57 Glucose 133 H Calcium 9.0 Magnesium 2.2 Total Bilirubin 0.7 AST 20 ALT 32 Alkaline Phosphatase 77 Troponin I < 50 Total Protein 7.3 Albumin 3.9 HPI General Mode of arrival: ambulatory . Date/Time Provider Initiated Documentation: 06/22/22 16:26 . Limitations to Documentation: no limitations . Information obtained by: patient . History of Present Illness 62 year old M presents to the emergency department with the chief complaint of Dizzy and nauseated after turning at work, recent sinus infection, described as moderate and similar to prior episodes, and is localized to the head and face. Patient reports no radiation. Patient started experiencing this hour(s) and it has been intermittent. Rest improves symptom(s), Movement worsens symptoms . Patient notes other (Feels woozy and nauseated.); denies headaches and loss of appetite. Patient did receive the following treatments prior to arrival, none Related Data Home Medications Medication Instructions Recorded Confirmed multivitamin (Daily Vitamin tablet) 1 ea PO DAILY 08/04/13 04/03/22 cholecalciferol (vitamin D3) 10 400 unit PO DAILY 12/04/19 04/03/22 mcg (400 unit) tablet (Vitamin D3) aspirin 81 mg tablet,delayed 81 mg PO DAILY 02/14/20 04/03/22 release (Adult Aspirin Regimen) atorvastatin 80 mg tablet 80 mg PO QPM 02/14/20 04/03/22 lisinopril 5 mg tablet 5 mg PO DAILY 02/14/20 04/03/22 ticagrelor 90 mg tablet (Brilinta) 90 mg PO BID 02/14/20 04/03/22 nitroglycerin 0.4 mg sublingual 0.4 mg sublingual Q5-15M PRN 04/16/20 04/03/22 tablet meclizine 25 mg tablet 25 - 50 mg PO TID PRN dizziness 04/01/22 04/03/22 #20 tabs ondansetron 4 mg disintegrating 4 mg PO Q6H PRN nausea and 04/01/22 04/03/22 tablet vomiting #10 tabs prednisone 50 mg tablet 50 mg PO DAILY 5 days #5 tabs 06/22/22 Previous Rx's Medication Instructions Recorded meclizine 25 mg tablet 25 - 50 mg PO TID PRN dizziness 04/01/22 #20 tabs ondansetron 4 mg disintegrating 4 mg PO Q6H PRN nausea and 04/01/22 tablet vomiting #10 tabs prednisone 50 mg tablet 50 mg PO DAILY 5 days #5 tabs 06/22/22 Allergies Allergy/AdvReac Type Severity Reaction Status Date / Time atropine Allergy Intermediate Hives Verified 06/22/22 14:34 diphenoxylate Allergy Intermediate Hives Verified 06/22/22 14:34 General Stated Complaint: Dizzy/Sync JAXON: 3 Review of Systems Narrative: Finished 10 days of Augmentin for sinus infection. No chest pain or shortness of breath. Was nauseated but did not vomit. 8 systems were reviewed and otherwise negative. PFSH All Active Problems (Updated 06/22/22 @ 18:22 by Juan Alberto Ohara MD) Labyrinthitis of left ear (Acute) Internal derangement of knee (Acute) Hyperlipidemia (Chronic) CAD (coronary artery disease) (Chronic) NSTEMI 12/2019, s/p NYA to LAD and RPDA. [place] [facility] [place] Major depressive disorder (Chronic) Medical History NSTEMI (non-ST elevated myocardial infarction) (~12/2019) Cardiac cath showed total occlusion of LAD, 60-70% lesion of RPDA s/p stent Surgical History History of percutaneous coronary intervention (12/04/19) NYA to mid segment of LAD and RPDA S/P bilateral inguinal hernia repair S/P vasectomy Family History Mother Heart disease Father , 95 Heart disease Myocardial infarction Brother No problems noted. Brother Prostate cancer Sister Heart disease Myocardial infarction Sister Cancer Sister Diabetes Son No problems noted. Son , 24 from ski accident No problems noted. Son Type 1 diabetes mellitus Daughter Meniere syndrome Daughter No problems noted. Maternal Grandfather No problems noted. Maternal Grandmother Heart disease Paternal Grandfather Heart disease Myocardial infarction Paternal Grandmother No problems noted. Social History Smoking/Tobacco Use Status: Never Second Hand Exposure: Yes Smoking risk assessment performed?: Yes Alcohol Intake: current Alcohol Intake frequency: a few times a week Alcohol type: beer and wine Drug use: Never Substance use type: does not use Caregiver/Support person: No Household members: spouse and children Housing: house Communication Needs: None Do you need help understanding health information?: Rarely Pets and animals: Yes Pets and animals: cat(s) and dog(s) Sexually active: Yes Do you think of yourself as: straight/heterosexual Current gender identity: male What is your relationship status?: How often do you talk on the phone with friends or family?: once per week How often do you attend mandaen or synagogue services?: 4 or more times per year Do you belong to any clubs or organized social groups?: yes Panel score (0-1 are the most socially isolated patients): 3 What type of physical activity do you participate in: walking Duration: 15-30 minutes/day Frequency: 3-4 times per week Francisca/Sabianist: Anglican Special francisca needs: No Seatbelt use: always Drive intox or ride w/intox commercial collections driver: No Do you feel safe at home: Yes Do you feel safe in your relationship?: Yes Exam Narrative Exam Narrative: GEN: awake, alert, oriented 3. Pleasant, well groomed, interactive. HEAD: Normocephalic, atraumatic ENT: Mucous membranes moist, oropharynx unremarkable, the left tympanic membrane is fluid-filled and distended, light reflex is intact, external ear exam unremarkable EYES: PERRL, EOMI NECK: Full ROM, no GREG, no menigismus CHEST/RESP: Nontender, clear to auscultation bilateral, no wheeze/rhonchi/rales CARDIOVASCULAR: RRR, no murmur, rub tyrel. 2+ Rad pulse bilateral ABDOMEN: Soft, nontender, no mass. +Bowel sounds EXT: Full ROM, no edema, no rash Neuro: Grossly normal neurologic exam, conversant, interactive. There is slight leftward horizontal 2-3 beat nystagmus with lateral gaze Psych: Speech fluent, thoughts congruent, affect normal Course Vital Signs Vital signs: Vital Signs Temperature 36.4 C L 06/22/22 16:19 Pulse 55 L 06/22/22 16:19 Respiratory Rate 18 06/22/22 16:19 Blood Pressure 145/76 H 06/22/22 16:19 Pulse Oximetry 99 06/22/22 16:19 Temperature 36.4 C L 06/22/22 16:19 Temperature Source Skin 06/22/22 16:19 Pulse 55 L 06/22/22 16:19 Respiratory Rate 18 06/22/22 16:19 Respiratory Effort 06/22/22 16:25 Blood Pressure 145/76 H 06/22/22 16:19 Blood Pressure Position Sitting 06/22/22 16:19 Pulse Oximetry 99 06/22/22 16:19 Oxygen Delivery Method Room Air 06/22/22 16:19 Oxygen Flow Rate 0 06/22/22 16:19 Pain Level 0 06/22/22 16:19 PAWSS Have you Been Recently Intoxicated or Drunk Within the Last 30 days?: No Have you Ever Experienced Previous Episodes of Alcohol Withdrawal?: No Have you ever Experienced Withdrawal Seizures?: No Have you ever Experienced Delirium Tremens(DT)s?: No Have you ever undergone Alcohol Rehabilitation Treatment (i.e, inpt ot outpatient treatment programs)?: No Have you ever Experienced Blackouts?: No Have you ever Combined Alcohol with other Downers within the last 90 days?: No Have you ever Combined Alcohol with any other Substance of Abuse during the last 90 days?: No Positive Blood Alcohol level on Presentation? [PCS.BAL]: No Evidence of Increased Autonomic Activity (i.e. HR>120, tremor, sweating, agitation, nausea)?: No Result: 0
[2022-06-22] MEDS: Meclizine 25 MG TAB PO (16:48)
[2022-06-22 16:50] VITALS: RESP 17
[2022-06-22 16:59] LABS: Abs Immature Grans 0.03 10^3/uL (0.0-0.06); Absolute Basophil Count 0.05 10^3/uL (0.0-0.2); Absolute Eosinophil Count 0.05 10^3/uL (0.0-0.7); Absolute Lymphocyte Count 0.85 10^3/uL (1.2-3.4); Absolute Monocyte Count 0.44 10^3/uL (0.1-0.8); Absolute Neutrophil Count 9.32 10^3/uL (1.2-6.7); Basophils % 0.5; Eosinophils % 0.5; HCT 41.1 % (40.0-50.0); HGB 14.2 g/dL (13.5-17.5); Immature Grans % 0.3; Lymphocytes % 7.9; MCH 31.4 pg (27.0-33.0); MCHC 34.5 % (32.0-36.0); MCV 91 fL (80-95); MPV 9.8 fL (8.0-11.0); Monocytes % 4.1; Neutrophils % 86.7; Platelet Count 194 10^3/uL (130-400); RBC 4.52 10^6/uL (4.36-5.78); RDW 13.2 % (11.8-14.1); RDW-SD 44.2 fL; WBC 10.74 10^3/uL (4.4-10.8)
[2022-06-22 17:15] LABS: ALT 32 U/L (16-63); AST 20 U/L (15-37); Albumin 3.9 g/dL (3.4-5.0); Alkaline Phosphatase 77 U/L (46-116); Anion Gap 8.5 mmol/L (3-11); BUN 22 mg/dL (7-18); Bilirubin, Total 0.7 mg/dL (0.2-1.0); CO2 28.5 mmol/L (21.0-32.0); CREATININE 0.9 mg/dL (0.70-1.30); Chloride 101 mmol/L (98-107); Estimated GFR 96.57 (mL/min/1.73m2); Glucose 133 mg/dL (74-106); Magnesium 2.2 mg/dL (1.8-2.4); Potassium 3.6 mmol/L (3.5-5.1); Sodium 138 mmol/L (136-145); Total Protein 7.3 g/dL (6.4-8.2); Troponin I < 50 ng/L (<or=60)
--- NOTE | 2022-06-22 17:50 | DI.CT_ITS ---
Exam(s) CT HEAD SINUS WO EXAM: CT HEAD SINUS WO CLINICAL HISTORY: L sinus pain, dizzy TECHNIQUE: COMPARISON: CT CT HEAD WO from 04/01/2022 FINDINGS: CT BRAIN WITHOUT: There are no skull fractures nor fluid in the visualized paranasal sinuses. No evidence of intracranial hemorrhage, mass effect, or shift of midline structures. No extra-axial fluid collections. Ventricles are not enlarged or shifted and there is no blood within the ventricul ar system nor within the basal cisterns. PARANASAL SINUSES: Maxillary sinuses exhibit mucosal thickening and some densities in their floors with either postinfla mmatory cyst or small polyps. No associated fluid levels. No bone dehiscence. Ostiomeatal units ar e patent bilaterally. Ethmoidal air cells are well aerated. No significant mucosal thickening or fluid in the sphenoid sin uses nor within the frontal sinuses. The nasal septum is mildly deviated towards the left side. The re is a small left-sided nasal septal spur. No evidence of mimi bullosa. Visualized mastoid air cells are clear. IMPRESSION: 1. No acute intracranial findings. 2. There is some mucosal thickening in the floor both maxillary sinuses. No fluid levels in the para nasal sinuses. Remainder of the paranasal sinuses are clear as are the ostiomeatal units.
--- NOTE | 2022-06-22 18:15 | DI.VRAD_ITS ---
Addendum created by Luis Fairbanks MD on 06/22/2022 6:19:39 PM EDT: Addendum: Small retention cysts both inferior maxillary sinuses are incidental. Initial report created on 06/22/2022 6:14:52 PM EDT: PROCEDURE INFORMATION: Exam: CT Head Without Contrast Exam date and time: 06/22/2022 5:46 PM Age: 62 years old Clinical indication: Dizziness TECHNIQUE: Imaging protocol: Computed tomography of the head without contrast. Radiation optimization: All CT scans at this facility use at least one of these dose optimization techniques: automated exposure control; mA and/or kV adjustment per patient size (includes targeted exams where dose is matched to clinical indication); or iterative reconstruction. COMPARISON: CT HEAD WO 04/01/2022 2:09 PM FINDINGS: Brain: No shift, mass, mass effect, or acute hemorrhage. Normal white matter density for age. Cerebral ventricles: No unusual ventriculomegaly for age. Pituitary gland and sella: No obvious mass or expansile change. Paranasal sinuses: Visualized sinuses are unremarkable. No fluid levels. Mastoid air cells: Visualized mastoid air cells are well aerated except for under aeration necme-fizszbx-ttni-left mastoid tips as a chronic stable finding. Orbital cavities: Unremarkable by this method. Bones/joints: Unremarkable. No acute fracture. No destructive lesion. Soft tissues: Unremarkable. Vasculature: Unremarkable. IMPRESSION: No acute intracranial abnormality. PROCEDURE INFORMATION: Exam: CT Maxillofacial Without Contrast, Sinus Exam date and time: 06/22/2022 5:46 PM Age: 62 years old Clinical indication: Dizziness TECHNIQUE: Imaging protocol: CT Maxillofacial without contrast. Focus on the sinuses. COMPARISON: CT HEAD WO 04/01/2022 2:09 PM FINDINGS: Frontal sinuses: Normal. No air-fluid levels. Ethmoid sinuses: Normal. No air-fluid levels. Sphenoid sinuses: Normal. No air-fluid levels. Maxillary sinuses: Normal. No air-fluid levels. Ostiomeatal units are patent. Nasal cavity: Unremarkable. Orbital cavities: Orbits are normal. Globes are unremarkable. Bones/joints: Unremarkable. Soft tissues: Unremarkable. IMPRESSION: Unremarkable sinuses. Dictated and Authenticated by: Luis Fairbanks MD. Ordering:ARABELLA Avendano MD
== END 2022-06-22 18:34 | disposition home or self-care (01) ==
PROVIDERS: Emergency Provider Emergency Medicine; PCP Nurse Practitioner Family
DX: H83.02 Labyrinthitis, left ear (principal); R42 Dizziness and giddiness; Z77.22 Contact with and (suspected) exposure to environmental tobacco smoke (acute) (chronic)
CPT/HCPCS: 80053; 93005; 99284; 70450; 70486; 83735; 84484; 85025; 93010

== ENCOUNTER 2022-08-11 15:31 | Emergency (ER) | payer OTHER, SELFPAY ==
--- NOTE | 2022-08-11 15:30 | DI.RAD_ITS ---
Exam(s) XR HAND RT COMPLETE EXAM: XR HAND RT COMPLETE CLINICAL HISTORY: trauma/2nd metacarpal. TECHNIQUE: 2D digital imaging was performed of the right hand. Three images were obtained. AP, late ral and oblique views were obtained. COMPARISON: No exams were available for comparison FINDINGS: BONES: No acute fracture is present. No bony destructive lesion is seen. JOINTS: No dislocation present. There are degenerative changes of the hand. SOFT TISSUE: Normal. IMPRESSION: No acute fracture or dislocation. DATA REPOSITORY: RADIATION DOSE DELIVERED:
[2022-08-11 15:35] VITALS: BP 158/79; PULSE 51; RESP 18; TEMP 37; O2SAT 98
--- NOTE | 2022-08-11 16:39 | ED.GENADUL_ITS ---
Discharge Plan Disposition Patient Disposition: HOME Condition: Stable Discharge Details Clinical Impression: Hand sprain Primary Care Provider: Carla Otto ED Provider: Archie Arshad Home Meds and New Rx's Prescriptions: Continued nitroglycerin 0.4 mg tablet, sublingual 0.4 mg SL Q5-15M PRN Rx Instructions: do not exceed 3 doses per episode lisinopril 5 mg tablet 5 mg PO DAILY aspirin [Adult Aspirin Regimen] 81 mg tablet,delayed release (DR/EC) 81 mg PO DAILY atorvastatin 80 mg tablet 80 mg PO QPM Brilinta 90 mg tablet 90 mg PO BID multivitamin [Daily Vitamin] 1 EACH tablet 1 ea PO DAILY cholecalciferol (vitamin D3) [Vitamin D3] 10 mcg (400 unit) Tablet 400 unit PO DAILY meclizine 25 mg tablet 25 - 50 mg PO TID PRN (Reason: dizziness) Qty: 20 0RF ondansetron 4 mg tablet,disintegrating 4 mg PO Q6H PRN (Reason: nausea and vomiting) Qty: 10 0RF Discharge Instructions Instructions: Hand Sprain (ED), R.I.C.E. Treatment (ED) Additional Instructions: Please use wrist splint as needed for discomfort and apply ice for no more than 20 minutes at a time with at least 20 minutes in between applications to prevent secondary injury. You may continue use alay-kwz-hsnatic pain medication as needed for discomfort. If not improving in the next week please follow-up with your primary care provider for reassessment and further repeat imaging or referral as needed. Referrals: Carla Otto, MICHA [Primary Care Provider] - 1 week (if not improving) Discharge Data Discharge Date/Time-TO BE ENTERED AT DEPARTURE: 08/11/22 16:53 Medical Decision Making Patient presenting to the emergency department for chief complaint of right hand injury. He states he was walking his dog when he injured his right hand. Patient denies any other injury or trauma. Patient has significant ecchymosis and swelling to the proximal third of the second metacarpal with tenderness to this area. Cap refill and sensation along with movement and motor function is intact to all digits. Pain is a elicited with movement of the thumb and index finger but patient has full strength and tendon exam is completely normal for all range of motion of the thumb and index finger. We will perform radiological imaging for evaluation of acute fracture. Review of radiological imaging and radiologist interpretation shows no acute findings. Patient placed in a thumb spica and encouraged to follow-up with primary care provider if not improving in the next week or to return for new or worsening symptoms. Patient encouraged use rqse-rki-zcyqyhj pain medication as needed for discomfort along with ice. After discussion of diagnosis and plan of care patient has no further needs, questions, or concerns and states clear understanding to return to the emergency department for any worsening symptoms. Imaging Data Radiologic Study: Attestation: I personally reviewed and interpreted this imaging study as follows: Imaging: X-Ray Radiologist's impression: FINDINGS: BONES: No acute fracture is present. No bony destructive lesion is seen. JOINTS: No dislocation present. There are degenerative changes of the hand. SOFT TISSUE: Normal. IMPRESSION: No acute fracture or dislocation. HPI General Date/Time Provider Initiated Documentation: 08/11/22 15:41 . Limitations to Documentation: no limitations . Information obtained by: patient and RN notes reviewed . History of Present Illness 62 year old M presents to the emergency department with the chief complaint of right thumb injury, described as mild and moderate, with intensity rated at 3. Quality is described as aching, and is localized to the right. Patient reports no radiation. Patient started experiencing this hour(s) and it has been constant. Immobilization improves symptom(s), Movement worsens symptoms . Patient notes no other symptoms.. Patient did receive the following treatments prior to arrival, none Related Data Home Medications Medication Instructions Recorded Confirmed multivitamin (Daily Vitamin tablet) 1 ea PO DAILY 08/04/13 04/03/22 cholecalciferol (vitamin D3) 10 400 unit PO DAILY 12/04/19 04/03/22 mcg (400 unit) tablet (Vitamin D3) aspirin 81 mg tablet,delayed 81 mg PO DAILY 02/14/20 04/03/22 release (Adult Aspirin Regimen) atorvastatin 80 mg tablet 80 mg PO QPM 02/14/20 04/03/22 lisinopril 5 mg tablet 5 mg PO DAILY 02/14/20 04/03/22 ticagrelor 90 mg tablet (Brilinta) 90 mg PO BID 02/14/20 04/03/22 nitroglycerin 0.4 mg sublingual 0.4 mg sublingual Q5-15M PRN 04/16/20 04/03/22 tablet meclizine 25 mg tablet 25 - 50 mg PO TID PRN dizziness 04/01/22 04/03/22 #20 tabs ondansetron 4 mg disintegrating 4 mg PO Q6H PRN nausea and 04/01/22 04/03/22 tablet vomiting #10 tabs Previous Rx's Medication Instructions Recorded meclizine 25 mg tablet 25 - 50 mg PO TID PRN dizziness 04/01/22 #20 tabs ondansetron 4 mg disintegrating 4 mg PO Q6H PRN nausea and 04/01/22 tablet vomiting #10 tabs Allergies Allergy/AdvReac Type Severity Reaction Status Date / Time atropine Allergy Intermediate Hives Verified 07/14/22 16:21 diphenoxylate Allergy Intermediate Hives Verified 07/14/22 16:21 General Stated Complaint: Orthopedic JAXON: 4 Review of Systems Narrative: 6 systems reviewed and unremarkable except what is marked below. Musculoskeletal Musculoskeletal: Reports as per HPI, Reports arthralgias and Reports limited range of motion Integumentary/Breasts Skin/Breast: Reports unusual bruising PFSH All Active Problems (Updated 08/11/22 @ 16:43 by Archie Arshad NP) Hand sprain (Acute) Internal derangement of knee (Acute) Hyperlipidemia (Chronic) CAD (coronary artery disease) (Chronic) NSTEMI 12/2019, s/p NYA to LAD and RPDA. Followed by [facility] Cardiology Major depressive disorder (Chronic) Medical History NSTEMI (non-ST elevated myocardial infarction) (~12/2019) Cardiac cath showed total occlusion of LAD, 60-70% lesion of RPDA s/p stent Surgical History History of percutaneous coronary intervention (12/04/19) NYA to mid segment of LAD and RPDA S/P bilateral inguinal hernia repair S/P vasectomy Family History Mother Heart disease Father , 95 Heart disease Myocardial infarction Brother No problems noted. Brother Prostate cancer Sister Heart disease Myocardial infarction Sister Cancer Sister Diabetes Son No problems noted. Son , 24 from ski accident No problems noted. Son Type 1 diabetes mellitus Daughter Meniere syndrome Daughter No problems noted. Maternal Grandfather No problems noted. Maternal Grandmother Heart disease Paternal Grandfather Heart disease Myocardial infarction Paternal Grandmother No problems noted. Social History Smoking/Tobacco Use Status: Never Second Hand Exposure: Yes Smoking risk assessment performed?: Yes Alcohol Intake: current Alcohol Intake frequency: a few times a week Alcohol type: beer and wine Drug use: Never Substance use type: does not use Caregiver/Support person: No Household members: spouse and children Housing: house Communication Needs: None Do you need help understanding health information?: Rarely Pets and animals: Yes Pets and animals: cat(s) and dog(s) Sexually active: Yes Do you think of yourself as: straight/heterosexual Current gender identity: male What is your relationship status?: How often do you talk on the phone with friends or family?: once per week How often do you attend christian or presybeterian services?: 4 or more times per year Do you belong to any clubs or organized social groups?: yes Panel score (0-1 are the most socially isolated patients): 3 What type of physical activity do you participate in: walking Duration: 15-30 minutes/day Frequency: 3-4 times per week Francisca/Samaritan: Evangelical Special francisca needs: No Seatbelt use: always Drive intox or ride w/intox patient transportation driver: No Do you feel safe at home: Yes Do you feel safe in your relationship?: Yes Exam Const General: cooperative, no acute distress and not ill appearing Orientation: alert, awake and oriented x3 Resp Effort & Inspection: normal respiratory effort, able to speak in complete sentences and no respiratory distress Cardio Rate: regular rate Rhythm: regular rhythm Pulses: normal peripheral pulses Skin General skin exam: no rashes or lesions noted Neuro General: patient alert, patient awake, patient oriented x3, moves all extremities and no focal motor deficits Sensory Exam: no sensory deficits noted Extrem General: normal exam except as noted Right upper extremity: hand Details: neuromotor exam normal, neurosensory exam normal, tendon exam normal, tenderness Location: of the dorsal hand Location: over the 2nd metacarpal, normal ROM of fingers, swelling Location: of the dorsal hand Location: over the 2nd metacarpal and ecchymosis Location: of the dorsal hand Location: over the 2nd metacarpal Course Vital Signs Vital signs: Vital Signs Temperature 37 C 08/11/22 15:35 Pulse 51 L 08/11/22 15:35 Respiratory Rate 18 08/11/22 15:35 Blood Pressure 158/79 H 08/11/22 15:35 Pulse Oximetry 98 08/11/22 15:35 Temperature 37 C 08/11/22 15:35 Temperature Source Oral 08/11/22 15:35 Pulse 51 L 08/11/22 15:35 Respiratory Rate 18 08/11/22 15:35 Respiratory Effort 08/11/22 15:38 Blood Pressure 158/79 H 08/11/22 15:35 Blood Pressure Position Supine 08/11/22 15:35 Pulse Oximetry 98 08/11/22 15:35 Oxygen Delivery Method Room Air 08/11/22 15:35 Oxygen Flow Rate 0 08/11/22 15:35 Pain Level 3 08/11/22 15:35
== END 2022-08-11 16:53 | disposition home or self-care (01) ==
PROVIDERS: Emergency Provider Nurse Practitioner Family; PCP Nurse Practitioner Family
DX: S63.8X1A Sprain of other part of right wrist and hand, initial encounter (principal); X50.1XXA Overexertion from prolonged static or awkward postures, initial encounter
CPT/HCPCS: 29125; 99283; 73130

== ENCOUNTER 2022-10-02 03:12 | Outpatient (CLI) | payer OTHER, SELFPAY ==
[2022-10-02 12:51] LABS: TSH (W/Ref FT4) 1.92 uIU/mL (0.36-3.74); Vitamin B12 817 pg/mL (193-986)
[2022-10-02 13:24] LABS: Hemoglobin A1C 5.1 % (<5.7)
[2022-10-02 23:11] LABS: PSA, Screening 1.4 ng/mL (<=4.5)
== END 2022-10-02 03:13 | disposition home or self-care (01) ==
LOC: LBO 03:12
PROVIDERS: PCP Nurse Practitioner Family; Visit Provider Nurse Practitioner Family
DX: I25.10 Atherosclerotic heart disease of native coronary artery without angina pectoris (principal); E78.5 Hyperlipidemia, unspecified; R41.3 Other amnesia; Z13.1 Encounter for screening for diabetes mellitus; Z12.5 Encounter for screening for malignant neoplasm of prostate; Z80.42 Family history of malignant neoplasm of prostate
CPT/HCPCS: 36415; 84153; 82607; 83036; 84443

== ENCOUNTER 2023-02-19 01:05 | Outpatient (CLI) | payer OTHER, SELFPAY ==
--- OUTSIDE RECORDS SUMMARY | 2023-02-19 01:13 | XMS_ITS ---
Author Name Ministerio Higuera Address [address], [place] [id number] Organization [facility] Address [address], [place] [id number] Care Team Providers Care Pi/Senior Research Associate Name Role Phone Ministerio Higuera Unavailable [phone] PROBLEMS Type Condition ICD9-CM Code WSM82-SE Code Onset Dates Condition Status SNOMED Code Problem Bilateral sensorineural hearing loss H90.3 Active 233050948 Problem NSTEMI (non-ST elevated myocardial infarction) I21.4 Active 703606576 ALLERGIES Substance Reaction Event Type Date Status Diphenoxylate Unknown Drug Allergy Dec, Active Atropine Unknown Drug Allergy Dec, Active ENCOUNTERS Encounter Location Date Diagnosis [facility] [address], [address] [place], [place] [id number] Dec, Bilateral sensorineural hearing loss H90.3 and 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 [facility] [address] [place], [place] [id number] Nov, [facility] [address] [facility] [address] [place], [place] [id number] Sep, IMMUNIZATIONS No Known Immunizations SOCIAL HISTORY Qualifiers Date Never Smoker REASON FOR REFERRAL FUNCTIONAL STATUS PLAN OF CARE Activity Details VITAL SIGNS Height 5 ft 11.5 in in 2022-12-04 Weight 215 lbs 2022-12-04 Heart Rate 62 /min 2022-12-04 Oximetry 97 2022-12-04 BMI 29.57 kg/m2 2022-12-04 Blood pressure systolic 128 mm Hg Blood pressure diastolic 72 mm Hg 2022-12 MEDICATIONS Medication Instructions Dosage Frequency Start Date End Date Duration Status Ibuprofen 200 MG Orally every 6 hrs 1 tablet as needed 6h Active aspirin 81mg orally daily one tab 24h Active Atorvastatin Calcium 80 MG Orally Once a day 1 tablet 24h 30 day(s) Active Nabumetone 500 MG Orally Twice a day 1 tablet 12h 30 day(s) Not-Taki ng Vitamin D-3 125 MCG (5000 UT) as directed Acti ve Lisinopril 5 MG Orally Once a day 1 tablet 24h 30 day(s) Active Multivitamins as directed Active Nitroglycerin 0.4 MG as directed Active PROCEDURES No Known procedures RESULTS No Results 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, 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, ENT Mucoecle, pre load Insurance Providers Health Insurance Type Health Plan Insurance Address Health Plan Insurance Phone Health Plan Insurance Name Health Plan Coverage Dates Member ID Patient Relationship to Subscriber Patient Address Patient Phone Patient Name Patient Date of Subscriber ID Subscriber Name Subscriber Date of Group No [facility] [address] [place] [id number] [facility] [employer] self Elie Rodriguez [id number] [facility] - DO NOT BILL (Write Off) [address] [facility] [id number] [facility] (Write Off) self Elie Rodriguez [id number]
--- NOTE | 2023-02-19 09:00 | DI.MRI_ITS ---
Exam(s) MR LUMBAR SPINE WO EXAM: MR LUMBAR SPINE WO CLINICAL HISTORY: R sciatic/SI pain,peripheral neuropathy,low back pain,m54.50,g62.9,m54.16. TECHNIQUE: Multiplanar multisequence MRI of the Lumbar spine was performed. COMPARISON: No exams were available for comparison FINDINGS: Bones: The last intervertebral disc space is designated the L5/S1 level for the numbering purpose of this examination. The vertebral body heights are well maintained. Alignment is satisfactory. There are degenerative endplate signal changes present particularly at L5-S1. Cord: The conus tip ends at the T12-L1 level. It is of normal size and signal intensity. T12-L1: No disc herniations or bulges are present. No central spinal canal or neural foraminal stenos is. L1-2: No disc herniations or bulges are present. No central spinal canal or neural foraminal stenosis . L2-3: There is a diffuse disc bulge. No central spinal canal or neural foraminal stenosis. L3-4: There is a diffuse disc bulge. There are hypertrophic changes of the facets and ligamentum fla vum. There is resultant moderate central spinal canal stenosis. No right neural foraminal stenosis. There is mild left neural foraminal stenosis. L4-5: There is a diffuse disc bulge. There are hypertrophic changes of the facets and ligamentum fla vum. These all contribute to cause moderate central spinal canal stenosis. No significant neural fo raminal stenosis is present. L5-S1: There is a diffuse disc bulge. There are degenerative changes of the facets. No significant central spinal canal stenosis. There is mild right neural foraminal stenosis. No significant left n eural foraminal stenosis. Soft tissues: The visualized SI joints and sacrum are well maintained. The paraspinal soft tissues ar e unremarkable. IMPRESSION: Multilevel degenerative changes are seen throughout the lumbar spine resulting in central spinal freda l and neural foraminal stenosis. The findings are most marked at L3-4 and L4-L5. Please see the abo ve discussion for complete details. DATA REPOSITORY:
== END 2023-02-19 01:25 ==
LOC: DI 01:05
PROVIDERS: PCP Nurse Practitioner Family; Visit Provider Psychiatry & Neurology Neurology
DX: M48.062 Spinal stenosis, lumbar region with neurogenic claudication (principal)
CPT/HCPCS: 72148

== ENCOUNTER 2023-03-01 17:10 | Outpatient (REF) | payer OTHER, SELFPAY ==
[2023-03-01 21:29] LABS: Abs Immature Grans 0.01 10^3/uL (0.0-0.06); Absolute Basophil Count 0.04 10^3/uL (0.0-0.2); Absolute Eosinophil Count 0.26 10^3/uL (0.0-0.7); Absolute Lymphocyte Count 1.21 10^3/uL (1.2-3.4); Absolute Monocyte Count 0.86 10^3/uL (0.1-0.8); Basophils % 0.9; Eosinophils % 6.1; HCT 41.1 % (40.0-50.0); HGB 14.3 g/dL (13.5-17.5); Immature Grans % 0.2; Lymphocytes % 28.6; MCH 31.6 pg (27.0-33.0); MCHC 34.8 % (32.0-36.0); MCV 91 fL (80-95); MPV 10.4 fL (8.0-11.0); Monocytes % 20.3; Neutrophils % 43.9; Platelet Count 177 10^3/uL (130-400); RBC 4.53 10^6/uL (4.36-5.78); RDW 12.9 % (11.8-14.1); RDW-SD 42.4 fL; WBC 4.23 10^3/uL (4.4-10.8)
[2023-03-01 21:32] LABS: Absolute Neutrophil Count 1.86 10^3/uL (1.2-6.7)
[2023-03-01 21:49] LABS: ALT 34 U/L (16-63); AST 26 U/L (15-37); Albumin 3.9 g/dL (3.4-5.0); Alkaline Phosphatase 83 U/L (46-116); Anion Gap 8.2 mmol/L (3-11); BUN 19 mg/dL (7-18); Bilirubin, Total 0.3 mg/dL (0.2-1.0); CO2 24.8 mmol/L (21.0-32.0); CREATININE 0.9 mg/dL (0.70-1.30); Calcium 8.6 mg/dL (8.5-10.1); Chloride 104 mmol/L (98-107); Estimated GFR 95.97 (mL/min/1.73m2); Glucose 88 mg/dL (74-106); Potassium 4.1 mmol/L (3.5-5.1); Sodium 137 mmol/L (136-145); Total Protein 6.9 g/dL (6.4-8.2)
[2023-03-03 12:23] LABS: Lyme Ab w Rflx to Lyme Confirm Negative (Negative)
[2023-03-05 21:49] LABS: Anaplasma phagocytophilum Negative (Negative); B. miyamotoi PCR Negative (Negative); Babesia divergens/MO-1 Negative (Negative); Babesia duncani Negative (Negative); Babesia microti Negative (Negative); Ehrlichia chaffeensis Negative (Negative); Ehrlichia ewingii/canis Negative (Negative); Ehrlichia muris eauclairensis Negative (Negative)
== END 2023-03-01 17:11 | disposition home or self-care (01) ==
LOC: LBN 17:10
PROVIDERS: PCP Nurse Practitioner Family; Visit Provider Nurse Practitioner Family
DX: R53.83 Other fatigue (principal); W57.XXXA Bitten or stung by nonvenomous insect and other nonvenomous arthropods, initial encounter; T14.8XXA Other injury of unspecified body region, initial encounter
CPT/HCPCS: 80053; 87798; 85025; 86618

== ENCOUNTER → 2023-12-27 11:25 | Outpatient (CLI) | payer OTHER, SELFPAY ==
[2023-12-27 12:41] LABS: Abs Immature Grans 0.02 10^3/uL (0.0-0.06); Absolute Basophil Count 0.05 10^3/uL (0.0-0.2); Absolute Eosinophil Count 0.25 10^3/uL (0.0-0.7); Absolute Lymphocyte Count 1.47 10^3/uL (1.2-3.4); Absolute Monocyte Count 0.59 10^3/uL (0.1-0.8); Absolute Neutrophil Count 3.72 10^3/uL (1.2-6.7); Basophils % 0.8; Eosinophils % 4.1; HCT 41.6 % (40.0-50.0); Immature Grans % 0.3; Lymphocytes % 24.1; MCH 30.9 pg (27.0-33.0); MCHC 33.7 % (32.0-36.0); MCV 92 fL (80-95); MPV 9.5 fL (8.0-11.0); Monocytes % 9.7; Platelet Count 170 10^3/uL (130-400); RBC 4.53 10^6/uL (4.36-5.78); RDW 12.7 % (11.8-14.1); RDW-SD 43.2 fL
[2023-12-27 12:52] LABS: ALT 27 U/L (16-63); AST 18 U/L (15-37); Alkaline Phosphatase 80 U/L (46-116); Anion Gap 8.1 mmol/L (3-11); BUN 21 mg/dL (7-18); Bilirubin, Total 0.7 mg/dL (0.2-1.0); CO2 28.9 mmol/L (21.0-32.0); Calcium 9.2 mg/dL (8.5-10.1); Chloride 103 mmol/L (98-107); Estimated GFR 84.57 (mL/min/1.73m2); Glucose 100 mg/dL (74-106); Sodium 140 mmol/L (136-145); Total Protein 7.3 g/dL (6.4-8.2)
[2023-12-27] MEDS: Barium Sulfate 2% W/V-Creamy Vanilla Smoothie 450 ML BTL PO ×2 (14:15→14:16)
[2023-12-27] MEDS: Omnipaque 350 MG/ML 500 ML BTL-Imaging package 100 ML IJ (14:18)
[2023-12-27] MEDS: Normal Saline - Diluent 50 ML VIAL IJ (14:20)
[2023-12-27] MEDS: Normal Saline Flush 10 ML SYR IVP (14:21)
--- NOTE | 2023-12-27 14:22 | DI.CT_ITS ---
Exam(s) CT ABDOMEN PELVIS W EXAM: CT ABDOMEN PELVIS W CLINICAL HISTORY: LLQ abdominal pain,blood with BM x 1,r10.32. TECHNIQUE: Imaging Protocol: Axial computed tomography images with coronal and sagittal reformatted images were created and reviewed CONTRAST MATERIAL: Intravenous: Omnipaque 350 Contrast volume:100 ml Oral: yes / COMPARISON: No exams were available for comparison FINDINGS: ABDOMEN and PELVIS: Lung Bases: No acute findings. Liver: Normal density. No measurable mass. Gallbladder and biliary tract: No radiodense calculus or biliary dilation. Pancreas: Normal density. No abnormal calcifications or inflammatory process. No evidence of mass. Spleen: Normal. Kidneys: Normal size, contour and axis. No radiodense stones. No obstructive uropathy. No suspicious masses seen. Duplex right collecting system with 2 ureters which merge distally. Adrenal glands: No masses seen. Vasculature: Abdominal aorta non-dilated. Soft tissues: Small fatty containing left inguinal hernia. Bladder: Distended no gross wall thickening. No calculi.No focal mass. Bowel: No obstruction. No bowel wall thickening. Appendix normal. Peritoneal cavity: No ascites. No focal collection or mesenteric inflammatory response. Bones: Degenerative changes are noted in the spine. Reproductive organs: Prostate mildly enlarged. Lymph nodes: Unremarkable. IMPRESSION:: No acute bowel abnormality. Mildly enlarged prostate and distended urinary bladder. RADIATION DOSE DELIVERED: Total DLP DATA REPOSITORY: All CT scans at this facility are submitted to the National Radiology Data Registry (NRDR) Dose Index Registry (DIR) with the [employer] (ACR). RADIATION OPTIMIZATION: All CT scans at this facility use at least one of these dose optimization te chniques: automated exposure control; mA and/or kV adjustment per patient size (includes targeted exa ms where dose is matched to clinical indication); or iterative reconstruction.
== END ==
PROVIDERS: PCP Nurse Practitioner Family; Visit Provider Physician Assistant
DX: R10.32 Left lower quadrant pain (principal)
CPT/HCPCS: 80053; 74177; 85025

== ENCOUNTER 2024-01-18 04:04 | Outpatient (CLI) | payer OTHER, SELFPAY ==
[2024-01-18 16:54] LABS: Hemoglobin A1C 5.7 % (<5.7)
[2024-01-18 17:37] LABS: Calculated LDL 68 mg/dL (<100); Cholesterol 150 mg/dL (<200); HDL Cholesterol 69 mg/dL (40-60); Triglyceride 68 mg/dL (<150)
[2024-01-19 20:05] LABS: PSA, Screening 1.1 ng/mL (<=4.5)
[2024-01-20 10:54] LABS: Hepatitis C Ab w Rflx HCV PCR Negative (Negative)
== END 2024-01-18 04:05 | disposition home or self-care (01) ==
LOC: LBO 04:04
PROVIDERS: PCP Nurse Practitioner Family; Visit Provider Nurse Practitioner Family
DX: I25.10 Atherosclerotic heart disease of native coronary artery without angina pectoris (principal); Z11.59 Encounter for screening for other viral diseases; Z12.5 Encounter for screening for malignant neoplasm of prostate
CPT/HCPCS: 36415; 80061; 84153; 86803; 83036

== ENCOUNTER 2024-03-03 09:55 | Day surgery (SDC) | payer OTHER, SELFPAY ==
--- NOTE | 2024-03-02 23:46 | W.COLOREPORT ---
Date of service: 03/03/24 Time of Service: 14:00 Colonoscopy Report Pre-op diagnosis general: Left lower quadrant pain and rectal bleeding Surgeon: Roseanne Gonzalez Anesthesia Type: General:No Airway Complications: None Disposition: same day Prep: Miralax/Dulcolax Procedure Description: After informed consent was obtained the patient was taken to the procedure room and placed in a left decubitous position. Monitors were applied and a time out was done. The patients name, date of , procedure, allergies to medications and metal in their body was reviewed. The patient was then sedated. Once sedated and comfortable a rectal exam was done. External exam was normal. Internal exam revealed a normal sphincter tone and no palpable masses. The prostate []. The scope was then introduced and retrofelexed. [] internal hemorrhoids were identified. The scope was then advanced to the cecum [] difficulty. The TI and appendiceal orifice were identified. The prep was []. The scope was then slowly retracted over [] minutes back into the rectum. Polyps were removed at []. The scope was removed and the patient was woken up and taken back to Same day surgery in stable condition. The patient tolerated the procedure well and there were no immediate complications. Follow up: The patient should follow up in [] years unless they develop changes in bowel habits or other new gastrointestinal complaints.
--- NOTE | 2024-03-02 23:47 | PDOC.DSDIS_ITS ---
Date of service: 03/03/24 Time of Service: 13:12 Discharge Plan Disposition Patient Disposition: Home Condition: Good Discharge Details Reason For Visit: Colon cancer screening Attending Provider: Roseanne Gonzalez Primary Care Provider: Carla Otto Home Meds and New Rx's Prescriptions: Continued nitroglycerin 0.4 mg tablet, sublingual 0.4 mg SL Q5-15M PRN Rx Instructions: do not exceed 3 doses per episode lisinopril 5 mg tablet 5 mg PO DAILY aspirin [Adult Aspirin Regimen] 81 mg tablet,delayed release (DR/EC) 81 mg PO DAILY atorvastatin 80 mg tablet 80 mg PO QPM multivitamin [Daily Vitamin] 1 EACH tablet 1 ea PO DAILY cholecalciferol (vitamin D3) [Vitamin D3] 10 mcg (400 unit) Tablet 400 unit PO DAILY Discontinued polyethylene glycol 3350 17 gram/dose powder 238 g PO ONCE Qty: 238 0RF Rx Instructions: take per colonoscopy instructions bisacodyl [Dulcolax (bisacodyl)] 5 mg tablet,delayed release (DR/EC) 5 mg PO ONCE Qty: 4 0RF Rx Instructions: take per colonoscopy instructions Discharge Instructions Additional Instructions: D[facility] Colonoscopy Post- Op Instructions Instructions for Everyone who is given Anesthesia: For your safety, please do the following for the next twenty-four (24) hours: *Do Not operate a motor vehicle (car, truck, motorcycle, etc.) *Do Not drink alcoholic beverages or use any recreational drugs for the first 24 hours or while taking pain medications. The medications in your body may have a reaction that can be dangerous. *Do Not make any important decisions or sign any important papers. Findings: Diverticula Make sure you are moving your bowels on a regular basis and not straining. Start a fiber supplement daily such as Metamucil. Follow up: 4 to 6 weeks 1. No lifting over 20 pounds or strenuous activity for the first 24 hours after your procedure. After 24 hours there are no restrictions on your activity but you may feel fatigued for a few days. 2. After you arrive home you may have a light meal and return to your normal diet as you can tolerate it without feeling sick to your stomach. 3. You may have a bloated, gaseous feeling in your belly (abdomen) after a colonoscopy. Passing gas and belching will help. Walking or lying down on your left side with your knees flexed may relieve the discomfort. Call the office at [phone] (Office) or [phone] (Hospital) right away if you notice any of the following: a.Vomiting of blood or ?coffee ground stools?. b.Rectal bleeding 1Tbsp, blood clots or continuous bleeding. c.Severe belly (abdominal) pain. d.A hard distended belly (abdomen) and an inability to pass gas. 4. Please don?t expect to have a normal BM (bowel movement) for 2-3 days after your procedure. 5. If there are questions regarding the findings of your procedure, please contact your doctor 6. If you are unable to contact your doctor with a problem, contact the hospital at [phone]. 7. Continue all your regular medications unless directed otherwise. I understand the above instructions and have no questions. Signature of Patient or Adult Escort Name of Responsible Adult Escort Signature of Nurse Date/Time Stand Alone Forms: Anesthesia Discharge Inst., Kedar Moralez (DSU) Activity:: See above Diet:: See above Discharge Orders Discharge Orders: Discharge Order (Routine); Ordered 03/03/24 Ordered By: Roseanne Gonzalez DS: Diagnosis Discharge Diagnosis (1) CAD (coronary artery disease): Status: Chronic (2) Hyperlipidemia: Status: Chronic (3) Prediabetes: Status: Acute (4) Change in bowel habits: Status: Chronic Asessment and Plan: The patient is seen and examined after their colonoscopy.? The patient has been able to pass gas.? They are not having abdominal pain.? They have been able to tolerate liquids and a snack.? They do not have any nausea or vomiting.? They are not having any chest pain or shortness of breath.??? They are not having any rectal bleeding. Their vital signs have been stable-see nursing notes. We discussed findings during their colonoscopy, and any biopsies that were done/polyps that were removed. The patient will be sent a letter with any biopsy results, and when to repeat the colonoscopy.-see discharge instructions. Patient was given explicit instructions to follow-up regarding colonoscopy-refer to discharge instructions.? We reviewed resumption of medications. Patient verbalized understanding and discharged in stable and satisfactory condition- See nursing notes. (5) Hemorrhoids: Status: Chronic (6) LLQ abdominal pain: Status: Acute (7) Diverticula of colon: Status: Acute (8) IBS (irritable bowel syndrome): Status: Chronic
[2024-03-03 10:13] VITALS: BP 116/83; PULSE 51; RESP 16; TEMP 36.7; O2SAT 99
[2024-03-03] MEDS: Lactated Ringers 1,000 ML 80 ML IV (10:39)
--- NOTE | 2024-03-03 10:47 | W.ANESPRE ---
General Info Date of Service Date Performed: 03/03/24 Height: 5 ft 10.5 in Weight: 94.8 kg Body Mass Index (BMI): 29.5 Surgical Procedure: Operation Date: 03/03/24 10:35 Proposed Procedure Side Surgeon p Colonoscopy with possible Hemorrhoid Banding Roseanne Gonzalez DO Actual Procedure Side Surgeon p Colonoscopy with possible Hemorrhoid Banding Not Applicable Roseanne Gonzalez DO Pre-Op Diagnosis Post-Op Diagnosis Colon cancer screening Meds Allergies and Home Medications Allergies Allergy/AdvReac Type Severity Reaction Status Date / Time atropine Allergy Intermediate Hives Verified 03/03/24 10:10 diphenoxylate Allergy Intermediate Hives Verified 03/03/24 10:10 Home Medication Medication Instructions Recorded multivitamin (Daily Vitamin tablet) 1 ea PO DAILY 08/04/13 cholecalciferol (vitamin D3) 10 400 unit PO DAILY 12/04/19 mcg (400 unit) tablet (Vitamin D3) aspirin 81 mg tablet,delayed 81 mg PO DAILY 02/14/20 release (Adult Aspirin Regimen) atorvastatin 80 mg tablet 80 mg PO QPM 02/14/20 lisinopril 5 mg tablet 5 mg PO DAILY 02/14/20 nitroglycerin 0.4 mg sublingual 0.4 mg sublingual Q5-15M PRN 04/16/20 tablet Current Visit Medications: Current Medications Generic Name Dose Route Start Last Admin Trade Name Freq PRN Reason Stop Dose Admin Hyoscyamine Sulfate 0.125 mg 03/03/24 11:44 Hyoscyamine 0.125 Mg Sl/Oral/Chew SL 04/02/24 11:43 DIRECTED PRN Ringer's Solution 1,000 mls @ 80 mls/hr 03/03/24 06:00 03/03/24 10:39 IV 03/03/24 23:59 80 mls/hr INFUSION LUCY Administration IV Miscellaneous Supplies 1 each 03/03/24 06:00 Iv Access IV 03/03/24 23:59 DIRECTED LUCY Ondansetron HCl 4 mg 03/03/24 11:44 Ondansetron 4 Mg/2 Ml Vial IVP 04/02/24 11:43 Q4H PRN PRN Nausea / Vomiting Sodium Chloride 0 ml 03/03/24 06:00 Normal Saline Flush 10 Ml Syr IV 03/03/24 23:59 PRN PRN Sodium Chloride 0 ml 03/03/24 06:00 Normal Saline 10 Ml Vial IJ 03/03/24 23:59 DIRECTED PRN Sterile Water 0 ml 03/03/24 06:00 Water,Injection,Sterile 10 Ml Vial IJ 03/03/24 23:59 DIRECTED PRN PFSH Active Problems Active Problems: Problem Status Onset Code Rectal bleeding K62.5 LLQ abdominal pain R10.32 Prediabetes R73.03 Left inguinal hernia K40.90 BPH (benign prostatic hyperplasia) N40.0 Hemorrhoids K64.9 Change in bowel habits R19.4 Sensorineural hearing loss of both ears H90.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 See's Dr. Villeda 11/2023 for F/U Surgical History Surgical History S/P vasectomy S/P bilateral inguinal hernia repair History of percutaneous coronary intervention (12/04/19) NYA to mid segment of LAD and RPDA Tobacco Smoking/Tobacco Use Status: Never Passive smoking exposure: Yes Second hand exposure: Yes Alcohol Alcohol Intake: current Alcohol intake frequency: a few times a month Alcohol type: beer and wine Substance Use Substance use: Never Substance use type: does not use Counseling provided: none Vital Signs and Lab Results Vital Signs Most Recent Vital Signs in EMR: Most Recent Vital Signs Temp Pulse Resp BP Pulse Ox 36.7 C 51 L 16 116/83 99 03/03/24 10:13 03/03/24 10:13 03/03/24 10:13 03/03/24 10:13 03/03/24 10:13 Lab Results Blood Type / Crossmatch: No Data to Display Complete Blood Count: No Data to Display Complete Metabolic Panel: No Data to Display Liver Function Panel: No Data to Display Coagulation Panel: No Data to Display Cardiac Panel: No Data to Display Arterial Blood Gas: No Data to Display Venous Blood Gas: No Data to Display Pancreas Panel: No Data to Display Thyroid Panel: No Data to Display Infectious Disease: No Data to Display Blood Cultures: No Data to Display Toxicology Panel: No Data to Display Anesthesia Assessment and Plan Anesthesia History Personal History: No History of Anesthesia Complications Family History: No Family History of Anesthesia Complications Exercise Tolerance Exercise Tolerance: Metabolic Equivalents>4 Pertinent Negatives Pertinent Negatives: No Symptoms of GERD Cardiac & Pulmonary Exam Cardiac Exam: Normal S1/S2 Heart Sounds Pulmonary Exam: Clear Bilateral Breath Sounds Implantable Cardiac Device Does patient have a Pacemaker or an ICD?: No Airway Exam Known Difficult Airway: No Mallampati Class: 2 Mouth Opening: Normal (> 3cm) Thyromental Distance: Greater than 3 cm Neck Range of Motion: Full ROM Neck Circumference: Normal Teeth Condition: Normal Dentition ASA Classification ASA Score: ASA 3 Emergency Case?: No NPO Status NPO Status: NPO Clears >2 hours, Solids >8 hours Anesthesia Plan Resuscitation Status: Full Code Anesthesia Technique: General Anesthesia Airway Planned: Natural Airway Monitors Used: Standard Monitors
[2024-03-03 10:48] VITALS: BMI 29.5
[2024-03-03 11:30] VITALS: BP 110/76; PULSE 51; RESP 18; TEMP 36.3; O2SAT 98
--- NOTE | 2024-03-03 11:36 | W.ANESPOSTOP ---
Postoperative Evaluation Date, Time and Location Date Performed: 03/03/24 Time Performed: 11:37 Patient Location: Day Surgery Unit Vital Signs Most Recent Imported Vital Signs: Most Recent Vital Signs Temp Pulse Resp BP Pulse Ox 36.3 C L 51 L 18 110/76 98 03/03/24 11:30 03/03/24 11:30 03/03/24 11:30 03/03/24 11:30 03/03/24 11:30 Pain Score Most Recent Pain Score: Most Recent Pain Score Pain Level 0 03/03/24 11:30 Assessment Mental Status: Awake (Alert & Oriented to Patient Baseline) Airway and Respiratory Function: Patent airway with normal (patient baseline) respiratory exam Cardiovascular Function: Hemodynamically Stable Hydration Status: Adequately Hydrated Nausea & Vomiting: No Nausea or Vomiting Pain: Pt. Denies Any Pain Peripheral Nerve Block: Patient did not receive a nerve block
[2024-03-03 12:00] VITALS: BP 119/71; PULSE 48; RESP 16; TEMP 36.5; O2SAT 98
== END 2024-03-03 13:22 | disposition home or self-care (01) ==
PROVIDERS: PCP Nurse Practitioner Family; Visit Provider Surgery
PROC: 0DJD8ZZ Inspection of Lower Intestinal Tract, Via Natural or Artificial Opening Endoscopic (ICD-10-PCS; CPT 45378; principal; 2024-03-03 10:30)
DX: K62.5 Hemorrhage of anus and rectum; K58.9 Irritable bowel syndrome, unspecified; Z12.11 Encounter for screening for malignant neoplasm of colon
CPT/HCPCS: 45378; J2001; J2704

== ENCOUNTER 2025-03-16 01:44 | Outpatient (CLI) | payer BC, SELFPAY ==
[2025-03-16 10:13] LABS: Anion Gap 5.8 mmol/L (3-11); BUN 17 mg/dL (7-18); CO2 30.2 mmol/L (21.0-32.0); Chloride 105 mmol/L (98-107); Estimated GFR 83.52 (mL/min/1.73m2); Glucose 106 mg/dL (74-106); Sodium 141 mmol/L (136-145)
[2025-03-16 18:56] LABS: PSA, Screening 0.9 ng/mL (<=4.5)
== END 2025-03-16 01:45 | disposition home or self-care (01) ==
LOC: LBO 01:44
PROVIDERS: PCP Nurse Practitioner Family; Visit Provider Nurse Practitioner Family
DX: I25.10 Atherosclerotic heart disease of native coronary artery without angina pectoris (principal); Z12.5 Encounter for screening for malignant neoplasm of prostate
CPT/HCPCS: 36415; 80048; 84153

== ENCOUNTER 2025-05-28 21:03 | Observation (INO) | payer BC, SELFPAY ==
[2025-05-28] VITALS (30 sets, daily range): BP systolic 128–161; BP diastolic 58–71; PULSE 55–71; RESP 10–22; TEMP 36.3; O2SAT 98–100
--- NOTE | 2025-05-28 21:15 | DI.CT_ITS ---
Exam(s) CT BRAIN NECK CTA EXAM: CT BRAIN NECK CTA CLINICAL HISTORY: pulsitile tinnitus, vertigo. TECHNIQUE: Imaging Protocol: Axial CT angiography was performed with multi- slice acquisition and multi-planar and/or 3D reconstructions. CONTRAST MATERIAL: Intravenous: Omnipaque 350 contrast volume:70 mL COMPARISON: CT CT HEAD WO from 04/01/[address] HEAD SINUS WO from 06/22/2022 FINDINGS: CT Head W/O and W: Ventricles and Extra axial spaces: Normal in size and morphology for the patient's age. Hemorrhage: None. Cerebral parenchyma: There is no evidence of an acute territorial infarct. Midline shift: None. Brainstem/Cerebellum: Normal. Calvarium: Normal. Visualized Paranasal sinuses/Mastoids: Clear. Soft Tissues: Unremarkable. Enhancement: Unremarkable. CTA Neck W: Common Carotid: Right: No dissection, occlusion or significant stenosis. Left: No dissection, occlusion or significant stenosis. External Carotid: Right: No occlusion or significant stenosis. Left: No occlusion or significant stenosis. Internal Carotid: Right: No dissection, occlusion or significant stenosis. Left: No dissection, occlusion or significant stenosis. Vertebral Artery: Right: No dissection, occlusion or significant stenosis. Left: No dissection, occlusion or significant stenosis. Lung Apices: Normal. Bones: Within normal limits for the patient's age. Soft Tissues: Normal. Thyroid gland: Unremarkable. CTA Brain W: Internal Carotid Arteries: There is no evidence of occlusion, aneurysm or significant stenosis. Anterior Cerebral Arteries: Right: No aneurysm, occlusion or significant stenosis. Left: No aneurysm, occlusion or significant stenosis. Middle Cerebral Arteries: Right: No aneurysm, occlusion or significant stenosis. Left: No aneurysm, occlusion or significant stenosis. Posterior Cerebral Arteries: Right: No aneurysm, occlusion or significant stenosis. Left: No aneurysm, occlusion or significant stenosis. Vertebral Arteries: Right: No aneurysm, occlusion or significant stenosis. Left: No aneurysm, occlusion or significant stenosis. Basilar Artery: No aneurysm, occlusion or significant stenosis. IMPRESSION: 1. No large vessel occlusion or significant stenosis on the CT angiography of the head. 2. No acute intracranial process. 3. No occlusion or significant stenosis on the CT angiography of the neck. 4. The preliminary [facility] report was reviewed. RADIATION DOSE DELIVERED: 2,186.4mGy.cm Total DLP DATA REPOSITORY: All CT scans at this facility are submitted to the National Radiology Data Registry (NRDR) Dose Index Registry (DIR) with the [employer] ([employer]). RADIATION OPTIMIZATION: All CT scans at this facility use at least one of these dose optimization techniques: automated exposure control; mA and/or kV adjustment per patient size (includes targeted exams where dose is matched to clinical indication); or iterative reconstruction.
--- NOTE | 2025-05-28 21:15 | RT.EKG_ITS ---
APPROVED REPORT Exam: Resting ECG Reason for Exam: Nausea/Vomiting Patient Location: E HR:62 bpm ECG Measurements Heart Rate [address] 149 P 26 QRSd 105 QRS 17 QT 460 T 31 QTc 469 Conclusion Sinus rhythm, rate 62 No interval abnormalities No STEMI No significant changes compared to prior
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
[2025-05-28 21:44] LABS: Abs Immature Grans 0.04 10^3/uL (0.0-0.06); HCT 40.1 % (40.0-50.0); HGB 13.8 g/dL (13.5-17.5); Immature Grans % 0.3 %; MCH 30.4 pg (27.0-33.0); MCHC 34.4 % (32.0-36.0); MCV 88 fL (80-95); MPV 9.6 fL (8.0-11.0); Platelet Count 169 10^3/uL (130-400); RBC 4.54 10^6/uL (4.36-5.78); RDW 12.5 % (11.8-14.1); RDW-SD 40.6 fL; WBC 11.80 10^3/uL (4.4-10.8)
[2025-05-28] MEDS: Ondansetron 4 MG/2 ML VIAL IVP ×2 (21:45→23:56)
[2025-05-28] MEDS: Meclizine 25 MG TAB PO (21:45)
--- NOTE | 2025-05-28 21:45 | DI.RAD_ITS ---
Exam(s) XR CHEST 2V PA LATERAL EXAM: XR CHEST 2V PA LATERAL CLINICAL HISTORY: CP TECHNIQUE: 2D digital imaging was performed of the chest. Three images were obtained. AP and lateral views were obtained. COMPARISON: CR XR CHEST 2V PA LATERAL from 12/04/2019 FINDINGS: MEDIASTINUM: Normal. HEART: Normal. PULMONARY VASCULATURE: Normal. LUNGS: Clear. PLEURAL SPACE: No pleural effusion or pneumothorax. BONE:Within normal limits for the patient's age. OTHER FINDINGS:Normal. IMPRESSION: 1. No acute pulmonary findings. 2. The preliminary [facility] report was reviewed. DATA REPOSITORY: RADIATION DOSE DELIVERED:
[2025-05-28 21:54] LABS: INR 1.1 (0.9-1.1); Prothrombin Time 11.4 sec (9.1-11.1)
[2025-05-28 22:10] LABS: ALT 26 U/L (16-63); AST 17 U/L (15-37); Albumin 4.2 g/dL (3.4-5.0); Alkaline Phosphatase 72 U/L (46-116); Anion Gap 11.0 mmol/L (3-11); BUN 16 mg/dL (7-18); Bilirubin, Total 0.8 mg/dL (0.2-1.0); CO2 26.0 mmol/L (21.0-32.0); Calcium 9.3 mg/dL (8.5-10.1); Chloride 102 mmol/L (98-107); Estimated GFR 74.50 (mL/min/1.73m2); Glucose 135 mg/dL (74-106); Magnesium 2.0 mg/dL (1.8-2.4); Potassium 3.9 mmol/L (3.5-5.1); Sodium 139 mmol/L (136-145); Total Protein 7.0 g/dL (6.4-8.2); Troponin I 7 ng/L (<or=76)
[2025-05-28] MEDS: Normal Saline - Diluent 50 ML VIAL IJ (22:42)
[2025-05-28] MEDS: Normal Saline Flush 10 ML SYR IVP (22:42)
[2025-05-28] MEDS: Omnipaque 350 MG/ML 100 ML BTL IJ (22:43)
[2025-05-28] MEDS: diazePAM 10 MG/2 ML SYR 2.5 MG IVP (22:47)
--- NOTE | 2025-05-28 22:56 | DI.[facility]_ITS ---
PROCEDURE INFORMATION: Exam: CTA Head Without And With Contrast, Arteriography Exam date and time: 05/28/2025 10:11 PM Age: 65 years old Clinical indication: Other: Pulsitile tinnitus, vertigo TECHNIQUE: Imaging protocol: Computed tomographic angiography of the head without and with contrast. Exam focused on the arteries. 3D rendering (Not supervised by radiologist): MIP and/or 3D reconstructed images were created by the technologist. Contrast material: OMNI 350; Contrast volume: 70 ml; Contrast route: INTRAVENOUS (IV); COMPARISON: CT HEAD SINUS WO 06/22/2022 5:46 PM FINDINGS: ANTERIOR CIRCULATION: Right internal carotid artery: Intracranial segment is patent with no significant stenosis or occlusion. No aneurysm. Right middle cerebral artery: No occlusion or significant stenosis. No aneurysm. Right anterior cerebral artery: No occlusion or significant stenosis. No aneurysm. Left internal carotid artery: Intracranial segment is patent with no significant stenosis. No aneurysm. Left middle cerebral artery: No occlusion or significant stenosis. No aneurysm. Left anterior cerebral artery: No occlusion or significant stenosis. No aneurysm. POSTERIOR CIRCULATION: Right vertebral artery: No occlusion or significant stenosis. No aneurysm. Left vertebral artery: No occlusion or significant stenosis. No aneurysm. Basilar artery: No occlusion or significant stenosis. No aneurysm. Right posterior cerebral artery: No occlusion or significant stenosis. No aneurysm. Left posterior cerebral artery: No occlusion or significant stenosis. No aneurysm. HEAD: Brain: Normal. No hemorrhage. Unremarkable white matter. No mass effect. Cerebral ventricles: Normal. No ventriculomegaly. Bones: Unremarkable. No acute fracture. Paranasal sinuses: Visualized sinuses are normal. No fluid levels. Mastoid air cells: Visualized mastoids are normal. No mastoid effusion. Soft tissues: Unremarkable. IMPRESSION: 1. No large vessel occlusion. 2. Unremarkable CT head. PROCEDURE INFORMATION: Exam: CTA Neck Without And With Contrast Exam date and time: 05/28/2025 10:11 PM Age: 65 years old Clinical indication: Other: Pulsitile tinnitus, vertigo TECHNIQUE: Imaging protocol: Computed tomographic angiography of the neck without and with contrast. Exam focused on the cervical segments of the vasculature. 3D rendering (Not supervised by radiologist): MIP and/or 3D reconstructed images were created by the technologist. Contrast material: OMNI 350; Contrast volume: 70 ml; Contrast route: INTRAVENOUS (IV); COMPARISON: CT HEAD SINUS WO 06/22/2022 5:46 PM FINDINGS: Right common carotid artery: No stenosis. No dissection or occlusion. Right internal carotid artery: No stenosis of the extracranial segment. No dissection or occlusion. Right external carotid artery: No occlusion or stenosis of the origin. Left common carotid artery: No stenosis. No dissection or occlusion. Left internal carotid artery: No stenosis of the extracranial segment. No dissection or occlusion. Left external carotid artery: No occlusion or stenosis of the origin. Right vertebral artery: No stenosis. No dissection or occlusion. Left vertebral artery: No stenosis. No dissection or occlusion. Soft tissues: Normal. No significant soft tissue swelling. Bones/joints: No acute fracture. IMPRESSION: No stenosis or occlusion. REFERENCES: NASCET CRITERIA. The degree of stenosis in the cervical segment of the internal carotid artery is based on NASCET criteria. Normal is no stenosis. Mild is less than 50% stenosis. Moderate is 50-69% stenosis. Severe is 70% to 99% stenosis. Total occlusion is no detectable patent lumen. Dictated and Authenticated by: Jason Hickman MD. Orderin [facility] A[facility] Hall MD
--- NOTE | 2025-05-28 22:56 | DI.[facility]_ITS ---
PROCEDURE INFORMATION: Exam: XR Chest Exam date and time: 05/28/2025 10:23 PM Age: 65 years old Clinical indication: Chest wall pain; Additional info: Cp TECHNIQUE: Imaging protocol: Radiologic exam of the chest. Views: 2 views. COMPARISON: CR XR CHEST 2V PA LATERAL 12/04/2019 9:52 AM FINDINGS: Lungs: Unremarkable. No consolidation. Pleural spaces: Unremarkable. No pleural effusion. No pneumothorax. Heart/Mediastinum: Unremarkable. No cardiomegaly. Bones/joints: Degenerative changes of the spine. IMPRESSION: No acute findings. Dictated and Authenticated by: Jason Hickman MD. Orderin [facility] A[facility] Hall MD
[2025-05-28 23:15] LABS: Troponin I 9 ng/L (<or=76)
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
[2025-05-29] VITALS (8 sets, daily range): BP systolic 95–133; BP diastolic 57–76; PULSE 55–66; RESP 16–20; TEMP 36.2–36.9; O2SAT 92–100
--- NOTE | 2025-05-29 01:17 | W.PC.ACHO ---
Registration Status: ADM ALEJANDRO Primary Language: Preferred Language: Italian ED Information & Data Chief Complaint Nausea/Vomit/Diar 05/28/25 21:29 Triage Note Nausea, L ear pain, tinnitus 05/28/25 21:07 in both ears, wooshing sound in ears when bending over, room is spinning made worse when turning head. 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 Medical / Surgical History (Last Reviewed 10/02/24 @ 20:30 by Carla Otto NP) Major depressive disorder NSTEMI (non-ST elevated myocardial infarction) (~12/2019) (Last Reviewed 10/02/24 @ 20:30 by Carla Otto NP) History of colonoscopy (03/02/24) S/P vasectomy S/P bilateral inguinal hernia repair History of percutaneous coronary intervention (12/04/19) Most Recent Vital Signs Temperature 36.2 C L 05/29/25 00:10 Pulse 62 05/29/25 00:10 Pulse Rhythm Regular 05/29/25 00:10 Pulse 65 05/29/25 00:00 Respiratory Rate 16 05/29/25 00:10 Respiratory Effort Normal, Non-Labored 05/28/25 23:02 Respiratory Depth Normal 05/28/25 23:02 Respiratory Pattern Normal 05/28/25 23:02 Blood Pressure 123/63 05/29/25 00:10 Blood Pressure Mean 84 05/29/25 00:01 Blood Pressure Position Sitting 05/28/25 23:02 Pulse Oximetry 92 05/29/25 00:10 Oxygen Delivery Method Room Air 05/29/25 00:10 Oxygen Flow Rate 0 05/29/25 00:10 Pain Level 0 05/29/25 00:10 Comment 2L NC 05/28/25 23:01 Allergies atropine Allergy (Intermediate, Verified 05/28/25 23:38) Hives diphenoxylate Allergy (Intermediate, Verified 05/28/25 23:38) Hives Active Medications Generic Name Dose Route Start Last Admin Trade Name Freq PRN Reason Stop Dose Admin Iohexol 100 ml 05/28/25 22:45 05/28/25 22:43 Omnipaque 350 Mg/Ml 100 Ml Btl IJ 06/27/25 23:59 70 ml DIRECTED LUCY Administration Ondansetron HCl 4 mg 05/28/25 23:47 05/28/25 23:56 Ondansetron 4 Mg/2 Ml Vial IVP 4 mg Q4H PRN Administration Sodium Chloride 50 ml 05/28/25 22:45 05/28/25 22:42 Normal Saline - Diluent 50 Ml Vial IJ 50 ml DIRECTED LUCY Administration Sodium Chloride 0 ml 05/28/25 22:41 05/28/25 22:42 Normal Saline Flush 10 Ml Syr IVP 10 ml PRN PRN Administration IV IV Catheter Type [Left Peripheral IV Antecubital] IV Catheter Gauge [Left 18 Antecubital] Diagnostics 05/29/25 05/28/25 05/28/25 Range/Units 00:27 22:46 21:35 WBC 11.80 H (4.4-10.8) 10^3/uL RBC 4.54 (4.36-5.78) 10^6/uL Hgb 13.8 (13.5-17.5) g/dL Hct 40.1 (40.0-50.0) % MCV 88 (80-95) fL MCH 30.4 (27.0-33.0) pg MCHC 34.4 (32.0-36.0) % RDW 12.5 (11.8-14.1) % Plt Count 169 (130-400) 10^3/uL MPV 9.6 (8.0-11.0) fL Immature Gran % 0.3 % Neutrophils % 69.8 % Lymphocytes % 19.7 % Monocytes % 6.8 % Eosinophils % 2.7 % Basophils % 0.7 % Nucleated RBC % 0.0 (0.0-0.3) % Absolute Neutrophils 8.24 H (1.2-6.7) 10^3/uL Absolute Lymphocytes 2.32 (1.2-3.4) 10^3/uL Absolute Monocytes 0.80 (0.1-0.8) 10^3/uL Absolute Eosinophils 0.32 (0.0-0.7) 10^3/uL Absolute Basophils 0.08 (0.0-0.2) 10^3/uL PT 11.4 H (9.1-11.1) sec INR 1.1 (0.9-1.1) Sodium 139 (136-145) mmol/L Potassium 3.9 (3.5-5.1) mmol/L Chloride 102 (98-107) mmol/L Carbon Dioxide 26.0 (21.0-32.0) mmol/L Anion Gap 11.0 (3-11) mmol/L BUN 16 (7-18) mg/dL Creatinine 1.1 (0.70-1.30) mg/dL Est GFR (CKD-EPI 2020) 74.50 (mL/min/1.73m2) Glucose 135 H (74-106) mg/dL Calcium 9.3 (8.5-10.1) mg/dL Magnesium 2.0 (1.8-2.4) mg/dL Total Bilirubin 0.8 (0.2-1.0) mg/dL AST 17 (15-37) U/L ALT 26 (16-63) U/L Alkaline Phosphatase 72 (46-116) U/L Troponin I Pending 9 7 (<or=76) ng/L Total Protein 7.0 (6.4-8.2) g/dL Albumin 4.2 (3.4-5.0) g/dL Intake and Output - 24 Hour Total 05/28/25 21:03 thru 05/29/25 00:10 Weight 98.4 kg Other: Urine Appearance Clear Emesis Description Undigested Food Bile Falls Risk Assessment History of Falls Previous History 05/29/25 00:10 Contributing Factors Unstable,Medications 05/29/25 00:10 Ambulatory Aids Independent 05/29/25 00:10 Tubes/Lines None 05/29/25 00:10 Gait Evaluation No gait disturbance 05/29/25 00:10 Cognition No cognitive impairment 05/29/25 00:10 Fall Total Score 21 05/29/25 00:10 Level of Risk Standard/Low Risk 05/29/25 00:10 Problems (Last Reviewed 10/02/24 @ 20:30 by Carla Otto NP) Nausea & vomiting (Acute) Objective pulsatile tinnitus of both ears (Acute) Vertigo (Acute) CAD (coronary artery disease) (Chronic) v v v v v v v v v Sending and/or Receiving Nurses: Please use comment section below to note any information pertinent to the patient hand-off not included above. Information / Comments: Report received from:report received from Ruby. All questions answered. Received pt via stretcher.VSS resp easy. Denies any pain oriented to room made comfortable. Call santiago in reach.
[2025-05-29 06:39] LABS: HCT 40.5 % (40.0-50.0); HGB 13.6 g/dL (13.5-17.5); MCH 30.1 pg (27.0-33.0); MCHC 33.6 % (32.0-36.0); MCV 90 fL (80-95); MPV 9.8 fL (8.0-11.0); Platelet Count 175 10^3/uL (130-400); RBC 4.52 10^6/uL (4.36-5.78); RDW 12.7 % (11.8-14.1); RDW-SD 41.8 fL; WBC 8.30 10^3/uL (4.4-10.8)
[2025-05-29 06:54] LABS: Anion Gap 6.2 mmol/L (3-11); BUN 14 mg/dL (7-18); CO2 28.8 mmol/L (21.0-32.0); Calcium 9.1 mg/dL (8.5-10.1); Chloride 106 mmol/L (98-107); Estimated GFR 83.52 (mL/min/1.73m2); Glucose 114 mg/dL (74-106); Potassium 4.2 mmol/L (3.5-5.1); Sodium 141 mmol/L (136-145)
[2025-05-29] MEDS: Aspirin E.C. 81 MG TABEC PO (08:26)
[2025-05-29] MEDS: Lisinopril 5 MG TAB PO (08:26)
[2025-05-29] MEDS: Normal Saline Flush 10 ML SYR IVP ×2 (08:27→20:05)
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
--- NOTE | 2025-05-29 11:13 | IN_ITS ---
PT Notes Visit Reasons: Vertigo Physical Therapy Inpatient Initial Evaluation Date: 05/29/2025 Referring Doctor: Zack An MD PT Orders: PT CONSULT: Eval/Treat Precautions: Fall. Standard. Activity as tolerated. Patient Profile/Admitting Diagnosis: Elie is a 65-year-old male patient with past medical hisotry significant for B SNHL and NSTEMI S/P NYA to LAD and RPDA who presented to the ED on 05/28/25 due to nausea, vomitting, and pulsatile tinnitus. Patient was admitted to the hospitalist's care for management of vertifo and CAD. PMHX: All Active Problems (Updated 05/28/25 @ 23:13 by Isabel Martínez MD) Nausea & vomiting (Acute) Objective pulsatile tinnitus of both ears (Acute) Vertigo (Acute) Bug bite (Acute) Seborrheic keratoses (Acute) CAD (coronary artery disease) (Chronic) NSTEMI 12/2019, s/p NYA to LAD and RPDA. Followed by [facility] Ischemic cardiomyopathy (Chronic) Hyperlipidemia (Chronic) IBS (irritable bowel syndrome) (Chronic) Prediabetes (Chronic) Left inguinal hernia (Chronic) Hemorrhoids (Chronic) Sensorineural hearing loss of both ears (Chronic) Degenerative joint disease (DJD) of lumbar spine (Chronic) Peripheral neuropathy (Chronic) BPH (benign prostatic hyperplasia) (Chronic) Diverticula of colon (Chronic) Medical History Major depressive disorder NSTEMI (non-ST elevated myocardial infarction) (~12/2019) Cardiac cath showed total occlusion of LAD, 60-70% lesion of RPDA s/p stent. See's Dr. Villeda 11/2023 for F/U Surgical History History of colonoscopy (03/02/24) S/P vasectomy S/P bilateral inguinal hernia repair History of percutaneous coronary intervention (12/04/19) NYA to mid segment of LAD and RPDA Social History/Home Situation: Lives with in a private home that has been made home accessible. Works for [employer] which requires climbing ladders, entering crawlspaces, and extensive driving. Equipment Owned/DME: None Subjective: Patient said that he has been diagnosed with limited hearing ability on the L ear last year. He described his tinnitus as a whooshing, cricket chirping, and insect crawling sensation that developed about a coupe of months ago. His dizziness developed one and a half weeks ago. He denied being dizzy the whole session except from when this provider asked him to do a one-legged stance on the R LE. 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 Onset: Almost a year or so ago for the diminished hearing acuity on the L; a couple of months for the whooshing, crickets chirping, or insects crawling sound in the ears, and one and a half weeks for the dizziness Quality: Off-balance kind of sensation Duration: All symptoms diinished at time of evaluation Previous Episodes: week long for dizziness but none reported today except for when he stood with the R leg dueing the one-legged stance test Exacerbating Factors: Standing on the R foot Headache: None Neck ache: None Nausea/Vomitting: None at time of evaluation but patient came in with said symptoms Hearing Loss: Mild L hearing impairment diagnosed by his corporate human resources manager last year Tinnitus: Yes described as pulsatile, whooshing, crickets chirping, or insects crawling sound Fullness in Ear: yes Imbalance: yes Red Flags: Visual changes: No longer able to transition well withhis bifocals Dysphagia or Dysarthria: None Facial Weakness: None Incoordination: None Prior Level of Function: Independent with all ADLs Current Level of Function: Mildly cautious with movement but managed to walk 400 feet without an AD Previous Treatment: Received previous treatment for vertigo OBJECTIVE: Posture: Good upright posturing Observation: Guarded movements, with limited head motions during gait, transfers and bed mobility Mental Status: A and O x 4 Vital Signs: Closely monitored by nursing staff ROM: Cervical: WFL Right Upper Extremity: Shoulder Flexion WFL. Shoulder abduction WFL. Elbow f lexion WFL. Wrist flexion WFL. Functional opening and closing of hand WFL. Left Upper Extremity: Shoulder Flexion WFL. Shoulder abduction WFL. Elbow flexion WFL. Wrist flexion WFL. Functional opening and closing of hand WFL. Right Lower Extremity: Hip flexion WFL. Hip abduction WFL. Knee flexion WFL. Ankle dorsiflexion WFL. Ankle plantarflexion WFL. Left Lower Extremity: Hip flexion WFL. Hip abduction WFL. Knee flexion WFL. Ankle dorsiflexion WFL. Ankle plantarflexion WFL. Strength: Cervical muscle strength: 4/5 Right Upper Extremity: Shoulder flexors 5/5. Shoulder abductors 5/5. Elbow flexo rs 5/5. Elbow extensors 5/5. Websphere Portal Architect strong. Left Upper Extremity: Shoulder flexors 5/5. Shoulder abductors 5/5. Elbow flexors 5/5. Elbow extensors 5/5. Websphere Portal Architect strong. Right Lower Extremity: Hip flexors 5/5. Hip abductors 5/5. Knee flexors 5/5. Knee extensors 5/5. Ankle dorsiflexors 5/5. Ankle plantarflexors 5/5. Left Lower Extremity:Hip flexors 5/5. Hip abductors 5/5. Knee flexors 5/5. Knee extensors 5/5. Ankle dorsiflexors 5/5. Ankle plantarflexors 5/5. Bed Mobility/Transfers: Rolling modified independent Supine to sit independent Sit to supine independent Sit to stand independent Stand to sit independent Gait: Supervision only for [facility] hallway ambulation of up to 350 feet without an assistive device. Trunk rotation and reciprocal arm swing decreased. Special Tests: Rhomberg: Intact Coordination: Intact Fine Motor: Intact Visual Tracking: Intact Head Thrust: Negative Rick-Halpike: Negative Supine Roll Test: Negative 30-second chair rise score: 10x Balance: Static Sitting: Good Dynamic Sitting: Good Static Standing: Good Dynamic Standing: Fair Special Tests: Mobility Limitations Standardized Measure [facility] AM-PAC 6 clicks Basic Mobility Inpatient Short Form: Raw Score: 24 CMS Score: 0% deficit Informed Consent/Education: Patient instructed in purpose of PT consult and plan of care. Agreeable to proceed with established PT POC to achieve personal goals. NEURO RE-ED: - Gaze stabilization exercises - Facilitated improved reciprocal arm swing and trunk rotation during level surface ambulation THERA ACT: - Instructed patient on safe performance of transfer and ambulation task performance as above ASSESSMENT: Patient without report of spinning and lightheadedness during testing for the Rick-Hallpike maneuver and the supine head roll test. Patient was able to tolerate today's mobility assessment but with notable hesitation and cautiousness throughout that resulted to reduced gait speed. Patient presents with clinical signs and symptoms consistent with current/admitting diagnoses that have resulted to mobility limitations, gait instability, generalized weakness, and overall ADL decline as demonstrated by the following impairment level findings: 1. Impaired standing balance 2. Impaired activity tolerance Impairments are contributing to the following functional limitations: 1. Increased completion time for mobility ADL performance 2. Increased risk for falls Patient is assessed as a [id number] low complexity based on the following: History: 85-year-old male with past medical history as indicated above Examination: Demonstrable impairment above Presentation: Evolving Decision Makin low complexity Goals: Goals X1 week 1. Independent gait on level surface with no assistive device for at least 1000 feet without report of pain nor dyspnea 2. Independent stair negotiation without rails for at least 12 steps without report of pain nor dyspnea 3. Independent with home exercise program 4. Good static and dynamic standing balance/tolerance Plan of Care/Treatment Plan: Patient will highly benefit from skilled physical therapy services including functional mobility training, bed mobility/transfer training, gait and balance training, therapeutic exercises, therapeutic activity, caregiver/staff/family education and training 1-2x/day, 7 days/week x 1 week. Plan of care has been reviewed with the COMPUTER TRAINING SPECIALIST providing the service under Physical Therapy direction. Initiate Physical Therapy intervention for strengthening, bed mobility, transfers, gait, stairs, balance training, use of assistive device. DISCHARGE RECOMMENDATIONS: Home with OP PT for vestibular rehab to facilitate full return to work TREATMENT CODE/TIME: 55802 x 20 minutes for 1 unit, 89772 x 34 minutes for 1 unit (11:03-11:57). Thank you for the opportunity to participate in the care of this patient. Snow Escobar PT, DPT, CLT [facility] [place], [place]
--- NOTE | 2025-05-29 17:10 | PGE_ITS ---
Date of Service Date of service: 05/29/25 Time of Service: 17:11 Assessment and Plan Assessment and plan (1) Vertigo: Status: Acute Assessment and plan: - Case reviewed today with Wero/ENT - Given patient's symptoms of sinus pressure, ear fullness, whooshing sound in his ear, vertigo, and acute asymmetric hearing loss, this appears most c/w acute vestibulitis. No signs of herpes/zoster infection. Will start high dose prednisone to improve prognosis of hearing loss - He has vascular risk factors, but CTA head negative. Will get MRI to rule out stroke and include contrast study of auditory canal. He is on ASA/statin, though CVA less likely. - M?ni?re's disease in ddx, but less likely - Patient was given IV diazepam, IV Zofran, and p.o. meclizine in the emergency department, and his symptoms improved as of early a.m. 03/29/2025 - Continue symptomatic management - Appreciate PT evaluation, did well today. (2) CAD (coronary artery disease): Status: Chronic Assessment and plan: - Continue home aspirin, statin, lisinopril (3) DVT prophylaxis: Status: Acute Assessment and plan: enoxaparin Subjective Subjective Patient reports: feels better, tolerating a regular diet, voiding w/o difficulty and nausea; denies vomiting, shortness of breath or fever Interval history since last seen: Feeling better during the course of the day. Was able to walk well with PT. Still some fullness in the frontal area of head, more when bends over. No vertigo when sitting back in bed and turning head. His left ear is still feeling full and less hearing. Nausea is better today, though he still has some. He had a similar episode that was not as bad a few years ago. Has had low pitch pulsation in both ears for years. Sometimes he gets ringing in the left year. He states hearing loss is chronic but looking back was symmetric in 2022, now focal on left, which was newly notable yesterday. Exam Narrative Exam Narrative: Well-appearing gentleman sitting up in bed in no acute distress, ANO x 4. HEENT: NC/AT, normal external ear (TM exam not repeated). no ptosis or facial droop or asymmetry. No nystagmus at rest or with head movement. CV: heart regular rhythm, lungs, auscultation bilaterally, abdomen soft, nontender, nondistended Lungs: CTAb, nl effort ext: no c/c/e, warm NEURO: CN 2-12 intact except less hearing to rub on left side vs right. Leong localizes louder on right with tuning fork midline. Objective Last Vital Signs Temp 36.8 C 05/29/25 15:10 Pulse 66 05/29/25 15:10 Resp 18 05/29/25 15:10 BP 95/57 L 05/29/25 15:10 Pulse Ox 94 05/29/25 15:10 Laboratory Results - last 24 hr 05/28/25 05/28/25 05/29/25 21:35 22:46 00:27 WBC 11.80 H RBC 4.54 Hgb 13.8 Hct 40.1 MCV 88 MCH 30.4 MCHC 34.4 RDW 12.5 Plt Count 169 MPV 9.6 Immature Gran % 0.3 Neutrophils % 69.8 Lymphocytes % 19.7 Monocytes % 6.8 Eosinophils % 2.7 Basophils % 0.7 Nucleated RBC % 0.0 Absolute Neutrophils 8.24 H Absolute Lymphocytes 2.32 Absolute Monocytes 0.80 Absolute Eosinophils 0.32 Absolute Basophils 0.08 PT 11.4 H INR 1.1 Sodium 139 Potassium 3.9 Chloride 102 Carbon Dioxide 26.0 Anion Gap 11.0 BUN 16 Creatinine 1.1 Est GFR (CKD-EPI 2020) 74.50 Glucose 135 H Calcium 9.3 Magnesium 2.0 Total Bilirubin 0.8 AST 17 ALT 26 Alkaline Phosphatase 72 Troponin I 7 9 Cancelled Total Protein 7.0 Albumin 4.2 05/29/25 06:25 WBC 8.30 RBC 4.52 Hgb 13.6 Hct 40.5 MCV 90 MCH 30.1 MCHC 33.6 RDW 12.7 Plt Count 175 MPV 9.8 Immature Gran % Neutrophils % Lymphocytes % Monocytes % Eosinophils % Basophils % Nucleated RBC % Absolute Neutrophils Absolute Lymphocytes Absolute Monocytes Absolute Eosinophils Absolute Basophils PT INR Sodium 141 Potassium 4.2 Chloride 106 Carbon Dioxide 28.8 Anion Gap 6.2 BUN 14 Creatinine 1.0 Est GFR (CKD-EPI 2020) 83.52 Glucose 114 H Calcium 9.1 Magnesium Total Bilirubin AST ALT Alkaline Phosphatase Troponin I Total Protein Albumin PAWSS Have you Been Recently Intoxicated or Drunk Within the Last 30 days?: No Have you Ever Experienced Previous Episodes of Alcohol Withdrawal?: No Have you ever Experienced Withdrawal Seizures?: No Have you ever Experienced Delirium Tremens(DT)s?: No Have you ever undergone Alcohol Rehabilitation Treatment (i.e, inpt ot outpatient treatment programs)?: No Have you ever Experienced Blackouts?: No Have you ever Combined Alcohol with other Downers within the last 90 days?: No Have you ever Combined Alcohol with any other Substance of Abuse during the last 90 days?: No Positive Blood Alcohol level on Presentation? [PCS.BAL]: No Evidence of Increased Autonomic Activity (i.e. HR>120, tremor, sweating, a gitation, nausea)?: No Result: 0 Time Spent with Patient Time Spent with Patient: 35-49 minutes Time was spent: preparing to see the patient(eg.review tests), obtaining and/or reviewing separately otained hiistory, ordering medications,tests, procedures, referring, communicating with other health intensive care nurse, indepentently interpreting results, counseling the patient and care coordination
[2025-05-29] MEDS: predniSONE 20 MG TAB 80 MG PO (17:27)
[2025-05-29] MEDS: Atorvastatin 40 MG TAB 80 MG PO (20:05)
--- NOTE | 2025-05-30 | DI.MRI_ITS ---
Exam(s) MR BRAIN WO/W EXAM: MR BRAIN WO/W CLINICAL HISTORY: vertigo, acute hearing loss. TECHNIQUE: Multiplanar multisequence MRI of the brain and internal auditory canals was performed. CONTRAST MATERIAL: IV Contrast: 20 mL of Dotarem contrast administered. COMPARISON: CT CT HEAD SINUS WO from 06/22/[address] BRAIN NECK CTA from 05/28/2025 FINDINGS: VENTRICLES AND EXTRA AXIAL SPACES: Normal in size and morphology for the patient's age. HEMORRHAGE: None. CEREBRAL PARENCHYMA: No focus of restricted diffusion to suggest acute infarct. No space-occupying lesion identified. MIDLINE SHIFT: None. BRAINSTEM/CEREBELLUM: Normal. CALVARIUM: Normal. ENHANCEMENT: No suspicious enhancement identified. VISUALIZED PARANASAL SINUSES/MASTOIDS: There is a mucous retention cyst in the left maxillary sinus. EWIIAAPAAYP OF MENDEZ: Normal flow void. PITUITARY GLAND: Unremarkable. IAC/CP ANGLE: The internal auditory canals are within normal limits. The cerebellar pontine angles are unremarkable. No enhancing lesions are seen. Visualized portion of the facial nerves appear within normal limits. OTHER FINDINGS: None. IMPRESSION: 1. There is no evidence of an acute infarct, intracranial mass or enhancing lesion. 2. There is no evidence of a mass or abnormal enhancement in the internal auditory canals or the cerebellopontine angles. DATA REPOSITORY:
[2025-05-30 03:49] VITALS: BP 104/64; PULSE 53; RESP 20; TEMP 36.6; O2SAT 92
[2025-05-30 07:33] VITALS: BP 125/70; PULSE 52; RESP 16; TEMP 36.8; O2SAT 97
[2025-05-30] MEDS: Lisinopril 5 MG TAB PO (09:20)
[2025-05-30] MEDS: Aspirin E.C. 81 MG TABEC PO (09:20)
[2025-05-30] MEDS: predniSONE 20 MG TAB 80 MG PO (09:20)
[2025-05-30] MEDS: Normal Saline Flush 10 ML SYR IVP ×2 (09:21→11:25)
[2025-05-30] MEDS: Enoxaparin 40 MG/0.4 ML SYR SC ×2 (09:42)
[2025-05-30 10:50] LABS: D-Dimer 242 ng/mlFEU (<500)
--- NOTE | 2025-05-30 11:17 | PHA.REVIEW2 ---
Pharmacy Admission Review Admission Clinical Review Admission Pharmacy Review: DVT prophylaxis (Acute) Nausea & vomiting (Acute) Objective pulsatile tinnitus of both ears (Acute) Vertigo (Acute) atropine Allergy (Intermediate, Verified 05/28/25 23:38) Hives diphenoxylate Allergy (Intermediate, Verified 05/28/25 23:38) Hives Resuscitation Status Full Code Height 5 ft 11 in Weight 98.4 kg Pharmacy Admission Review Renal Dosing Renal Dosing: BUN 14 mg/dL (7-18) 05/29/25 06:25 Creatinine 1.0 mg/dL (0.70-1.30) 05/29/25 06:25 Medications needing adjustments: Reviewed (CrCl 88 mL/min) List of meds needing interventions: Current medications are okay Anticoagulation Anticoagulation: Hgb 13.6 g/dL (13.5-17.5) 05/29/25 06:25 Hct 40.5 % (40.0-50.0) 05/29/25 06:25 Plt Count 175 10^3/uL (130-400) 05/29/25 06:25 INR 1.1 (0.9-1.1) 05/28/25 21:35 Creatinine 1.0 mg/dL (0.70-1.30) 05/29/25 06:25 DVT Prophylaxis: Reviewed Medications: Enoxaparin (40mg daily) Relevant Labs Relevant Labs: Sodium 141 mmol/L (136-145) 05/29/25 06:25 Potassium 4.2 mmol/L (3.5-5.1) 05/29/25 06:25 Chloride 106 mmol/L (98-107) 05/29/25 06:25 Magnesium 2.0 mg/dL (1.8-2.4) 05/28/25 21:35 Electrolytes, C-Reactive P, ESR: Reviewed (No new labs for today) Cardiac Review Cardiac Review: Troponin I Cancelled 05/29/25 00:27 BP, HR, EF%: Reviewed (BP WNL, HR 52) List meds needing interventions: Has order for lisinopril 5mg daily QTc Review QTc: Reviewed (469 from 05/28) IV to PO Switch IV Medications: Intervened (diazepam and metoclopramide - changed ondansetron from IV to PO, provider aware) Home Meds Home Med List reviewed: Reviewed Relevent Home Meds Not ordered & why?: vitamin D3, multivitamin and nitroglycerin (PRN) Current Meds Current Medication Order Review: Intervened Comments: Added IV access order Added 2nd PRN to ondansetron order per pharmacy protocol
[2025-05-30] MEDS: Gadoterate meglumine 20 ML SYRINGE IVP (11:25)
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
--- NOTE | 2025-05-30 14:17 | PDOC.CMDIS ---
Date of service: 05/30/25 Time of Service: 14:39 LACE Index Scoring Tool Questions: Length of Stay (in days): 2 Was the patient admitted via the E.D.?: Yes E.D. Visits: 1 Answers: Total Score: 6 Risk of Readmission: Low Risk Care Management Discharge Plan Reason for Hospitalization: Vertigo Discharge Plan: Elie will be discharged home with outpatient PT for vestibular rehab. It is recommended he will follow up with his community providers and continue per his discharge plan of care. He will transport home via private vehicle. Patient/Family Education Needs: Review of discharge instructions, activity, limitations, and plan of care. Discuss ask me three. Services Needed at Discharge: Outpatient Therapy SDOH Health Related Social Needs: Health related social needs lonely/isolated
[2025-05-31 10:19] LABS: Lyme Ab w Rflx to Lyme Confirm Negative (Negative)
== END 2025-05-30 13:32 | disposition home or self-care (01) ==
LOC: ER 23:33 → MS 05-29 00:04
PROVIDERS: Admitting Provider Family Medicine; Emergency Provider Emergency Medicine; PCP Nurse Practitioner Family; Responsible Provider Family Medicine; Visit Provider Family Medicine
DX: H83.02 Labyrinthitis, left ear (principal); R42 Dizziness and giddiness; I25.10 Atherosclerotic heart disease of native coronary artery without angina pectoris; H91.22 Sudden idiopathic hearing loss, left ear; I10 Essential (primary) hypertension; Z95.5 Presence of coronary angioplasty implant and graft; R11.11 Vomiting without nausea; R26.2 Difficulty in walking, not elsewhere classified; R11.2 Nausea with vomiting, unspecified; E78.5 Hyperlipidemia, unspecified; I25.2 Old myocardial infarction; I25.5 Ischemic cardiomyopathy; K58.9 Irritable bowel syndrome, unspecified; R73.03 Prediabetes; G62.9 Polyneuropathy, unspecified; N40.0 Benign prostatic hyperplasia without lower urinary tract symptoms
CPT/HCPCS: 00123; 36415; 70496; 70498; 70553; 80048; 80053; 85027; 93005; 96372; 96374; 96375; 96376; 97162; 97530; 99285; J1650; 71046; 83735; 84484; 85025; 85379; 85610; 86618; 93010; 99223; 99232; 99239; G0378; J2405; J3360; J3490; J7512

== ENCOUNTER 2025-08-13 06:12 | Day surgery (SDC) | payer BC, SELFPAY ==
[2025-08-13] VITALS (18 sets, daily range): BP systolic 96–126; BP diastolic 50–74; PULSE 46–65; RESP 14–19; TEMP 36.1–36.5; O2SAT 96–100; BMI 29.2
[2025-08-13] MEDS: Lactated Ringers 1,000 ML 80 ML IV (06:55)
--- NOTE | 2025-08-13 07:14 | W.ANESPRE ---
General Info Date of Service Date Performed: 08/13/25 Height: 5 ft 11 in Weight: 95 kg Body Mass Index (BMI): 29.2 Surgical Procedure: Operation Date: 08/13/25 07:40 Proposed Procedure Side Surgeon p Hernia Inguinal Laparoscopic w/Mesh Left Trinity Ramirez MD Meds Allergies and Home Medications Allergies Allergy/AdvReac Type Severity Reaction Status Date / Time atropine Allergy Intermediate Hives Verified 08/13/25 06:41 diphenoxylate Allergy Intermediate Hives Verified 08/13/25 06:41 metoprolol AdvReac Severe Other (See Verified 08/13/25 06:41 Comment) ondansetron AdvReac Unknown dizziness Verified 08/13/25 06:41 Home Medication Medication Instructions Recorded multivitamin (Daily Vitamin tablet) 1 ea PO DAILY 08/04/13 cholecalciferol (vitamin D3) 10 400 unit PO DAILY 12/04/19 mcg (400 unit) tablet (Vitamin D3) aspirin 81 mg tablet,delayed 81 mg PO DAILY 02/14/20 release (Adult Aspirin Regimen) nitroglycerin 0.4 mg sublingual 0.4 mg sublingual Q5-15M PRN 04/16/20 tablet lisinopril 5 mg tablet 5 mg PO DAILY #90 tabs 05/08/25 atorvastatin 80 mg tablet 80 mg PO HS 08/13/25 Current Visit Medications: Current Medications Generic Name Dose Route Start Last Admin Trade Name Freq PRN Reason Stop Dose Admin Ringer's Solution 1,000 mls @ 80 mls/hr 08/13/25 06:00 08/13/25 06:55 IV 08/13/25 23:59 80 mls/hr INFUSION LUCY Administration Cefazolin Sodium/Dextrose 2 gm in 50 mls @ 100 mls/hr 08/13/25 06:00 Ancef Duplex IVPB 08/13/25 23:59 PREOP LUCY IV Miscellaneous Supplies 1 each 08/13/25 06:00 Iv Access IV 08/13/25 23:59 DIRECTED LUCY Sodium Chloride 0 ml 08/13/25 06:00 Normal Saline Flush 10 Ml Syr IV 08/13/25 23:59 PRN PRN Sodium Chloride 0 ml 08/13/25 06:00 Normal Saline 10 Ml Vial IJ 08/13/25 23:59 DIRECTED PRN Sterile Water 0 ml 08/13/25 06:00 Water,Injection,Sterile 10 Ml Vial IJ 08/13/25 23:59 DIRECTED PRN [facility] Active Problems Active Problems: Problem Status Onset Code Recurrent inguinal hernia of left side without obstruction or gangrene Acute K40.91 Sudden-onset sensorineural hearing loss of left ear Acute ~05/2025 H91.22 Acute labyrinthitis Acute ~05/2025 H83.09 CAD (coronary artery disease) Chronic I25.10 Ischemic cardiomyopathy Chronic I25.5 Hyperlipidemia Chronic E78.5 IBS (irritable bowel syndrome) Chronic K58.9 Prediabetes Chronic R73.03 Left inguinal hernia Chronic K40.90 Hemorrhoids Chronic K64.9 Sensorineural hearing loss of both ears Chronic H90.3 Degenerative joint disease (DJD) of lumbar spine Chronic M47.816 Peripheral neuropathy Chronic G62.9 BPH (benign prostatic hyperplasia) Chronic N40.0 Diverticula of colon Chronic K57.30 Medical History Medical History Objective pulsatile tinnitus of both ears Vertigo Major depressive disorder NSTEMI (non-ST elevated myocardial infarction) (~12/2019) Cardiac cath showed total occlusion of LAD, 60-70% lesion of RPDA s/p stent. See's Dr. Villeda 11/2023 for F/U Surgical History Surgical History History of colonoscopy (03/02/24) S/P vasectomy S/P bilateral inguinal hernia repair History of percutaneous coronary intervention (12/04/19) NYA to mid segment of LAD and RPDA Tobacco Smoking/Tobacco Use Status: Never Passive smoking exposure: Yes Second hand exposure: Yes Alcohol Alcohol Intake: former Substance Use Substance use: Never Substance use type: does not use Counseling provided: none Vital Signs and Lab Results Vital Signs Most Recent Vital Signs in EMR: Most Recent Vital Signs Temp Pulse Resp BP Pulse Ox 36.5 C 51 L 16 126/68 98 08/13/25 06:23 08/13/25 06:23 08/13/25 06:23 08/13/25 06:23 08/13/25 06:23 Imaging and Studies Imaging and Studies Study information below may be from another EMR and interpreted by another provider. Please see original notes in EMR for more complete details. EKG Summary: 05/28/25 Conclusion Sinus rhythm, rate 62 No interval abnormalities No STEMI No significant changes compared to prior Anesthesia Assessment and Plan Anesthesia History Personal History: No History of Anesthesia Complications Family History: No Family History of Anesthesia Complications Exercise Tolerance Exercise Tolerance: Metabolic Equivalents>4 Pertinent Negatives Pertinent Negatives: No Symptoms of GERD, No Major Cardiovascular Symptoms or Complaints and No Major Pulmonary Symptoms or Complaints Cardiac & Pulmonary Exam Cardiac Exam: Normal S1/S2 Heart Sounds Pulmonary Exam: Clear Bilateral Breath Sounds Implantable Cardiac Device Does patient have a Pacemaker or an ICD?: No Airway Exam Known Difficult Airway: No Mallampati Class: 2 Mouth Opening: Normal (> 3cm) Thyromental Distance: Greater than 3 cm Neck Range of Motion: Full ROM Neck Circumference: Normal Teeth Condition: Normal Dentition ASA Classification ASA Score: ASA 2 Emergency Case?: No NPO Status NPO Status: NPO Clears >2 hours, Solids >8 hours Anesthesia Plan Resuscitation Status: Full Code Anesthesia Technique: General Anesthesia Airway Planned: Endotracheal Tube Monitors Used: Standard Monitors and SedLine
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
--- NOTE | 2025-08-13 07:34 | W.PM.DSUDISC ---
Date of service: 08/13/25 Discharge Plan Disposition Patient Disposition: Home Condition: Stable Discharge Details Attending Provider: Trniity Ramirez Primary Care Provider: Carla Otto Home Meds and New Rx's Prescriptions: New hydrocodone-acetaminophen 5-325 mg tablet 1 tab PO Q6H PRNQty: 10 0RF ibuprofen 800 mg tablet 800 mg PO Q8H PRNQty: 14 0RF Continued nitroglycerin 0.4 mg tablet, sublingual 0.4 mg SL Q5-15M PRN Rx Instructions: do not exceed 3 doses per episode aspirin [Adult Aspirin Regimen] 81 mg tablet,delayed release (DR/EC) 81 mg PO DAILY multivitamin [Daily Vitamin] 1 EACH tablet 1 ea PO DAILY lisinopril 5 mg tablet 5 mg PO DAILY Qty: 90 3RF cholecalciferol (vitamin D3) [Vitamin D3] 10 mcg (400 unit) Tablet 400 unit PO DAILY atorvastatin 80 mg tablet 80 mg PO HS Discharge Instructions Additional Instructions: Shower in 24 hours. Wash gently over skin glue with soapy hands, rinse, pat dry. Don't peel glue or submerge incisions under water (no bath tub or pool). Do not clean the glue with rubbing alcohol or any solvents beyond your regular soap/body wash and water. The glue will start to come off on its own in about 2 weeks. Ok to walk, climb stairs, and resume normal activities of daily living. Do not lift/push/pull more than 20lb for 4 weeks. Do not exercise until cleared by surgeon in office. RESUME ASPIRIN ON 08/14/25. Swelling and bruising in the groin and scrotum is normal and expected. You may even notice an eggplant-like change to the scrotum on the side(s) of the repair. This is harmless and will improve over time. Elevate the scrotum with washcloth rolls while laying down, or gently ice the swollen areas for 2-4 minutes at a time if desired for comfort. Monitor yourself for constipation during recovery. Add a stool softener or laxative if no BM within 36 hours. Call or return for fever or incisional problems. Activity:: as above Shower/Bathe:: 24 hours Diet:: As Tolerated Stand Alone Forms: Portal Information Discharge Orders Discharge Orders: Discharge Order (Routine); Ordered 08/13/25 Ordered By: Trinity Ramirez DS: Diagnosis Discharge Diagnosis (1) Recurrent inguinal hernia of left side without obstruction or gangrene: Status: Acute
[2025-08-13] MEDS: ceFAZolin 2 GM/50 ML BAG IVPB (07:52)
[2025-08-13] MEDS: Bupivacaine 0.25% Pres-Free W/EPI 30 ML VIAL (08:50)
--- NOTE | 2025-08-13 09:13 | ROE_ITS ---
Operative Note Operative Note Procedure Description: PRE-OP DIAGNOSIS: Recurrent left inguinal hernia POST-OP DIAGNOSIS: Recurrent left inguinal hernia PROCEDURE: Laparoscopic repair of recurrent left inguinal hernia with mesh SURGEON: Trinity Ramirez SUPERMARKET MANAGER: Jozef Herzog ANESTHESIA TYPE: Local By Surgeon and General LMA/ETT Refer to Anesthesia Record ESTIMATED BLOOD LOSS: 30 PATHOLOGY: none sent COMPLICATIONS: None Patient was transported to: PACU Patient's condition: stable Implants: Left sided Large Bard 3DMax MID mesh. Findings: Left side direct and indirect hernia (pantaloon hernia) Procedure Description: This is a 65yo M with a symptomatic left inguinal hernia. He has had a prior open bilateral repair. There is no hernia on the right side. He was seen in the office and scheduled for laparoscopic repair of left inguinal hernia with mesh. On the day of surgery informed consent was confirmed after discussion of the procedure risks, benefits, alternatives, and expectations. The patient asked good questions and verbalized understanding of the plan. He was taken to the operating room The operating room he was placed supine on the operating table. SCDs were placed and all pressure points were padded appropriately. General anesthesia was induced. A herman catheter was placed. The abdomen was clipped prepped and draped in the usual sterile fashion. Timeout was performed. Local anesthetic was infiltrated into the skin and subcutaneous tissues at each port access site. A midline vertical incision was made below the umbilicus and the subcutaneous tissue was dissected down to the level of the fascia using cautery. The fascia was retracted to the left of the midline. The anterior rectus sheath was opened sharply and muscle-splitting technique was used to retract the muscle fibers over the peritoneum. A peon clamp was used to access the preperitoneal space down to the pubic bone. A Spacemaker balloon was inserted and directed at the pubic bone. Spacemaker balloon was inflated and deflated and the port advanced into the preperitoneal space. Insufflation to 15 mmHg was accomplished with carbon dioxide gas. Laparoscopy revealed no injury to the underlying structures. Two 5 mm ports were placed in the midline under direct visualization. The preperitoneal space was examined and anatomical landmarks identified. The pubic bone was cleared. The lateral wall was cleared. The hernia sac was noted high along the cord structures as an indirect inguinal hernia. A second, direct hernia medial to the inferior epigastric vessels was identified. The left direct hernia was incarcerated. The indirect sac was dissected bluntly from the cord structures. It was and pulled low and posterior in the preperitoneal space. Next the direct sac was reduced bluntly as well using 5mm graspers, traction and counter traction. A large amount of preperitoneal fat was reduced. A large sized 3D max MID mesh was selected for the repair. The mesh was introduced to the preperitoneal space and positioned over the direct and indirect spaces. It was tacked to the iliopubic tract at 3 points. There was adequate coverage of the direct and indirect space. There was no evidence of obturator or femoral hernia from this view. The preperitoneal space was deflated under direct visualization and the mesh was noted to stay flat at the repair site. The peritoneum was opened with metzenbaum scissors and the pneumoperitoneum that had accumulated was released. The anterior rectus sheath was reapproximated with two 0 Vicryl [id number] stitches. The skin at each port site was closed with simple interrupted subcuticular 4-0 Monocryl. The skin was washed and dried and surgical skin glue was applied to the incisions. All sponge and instrument counts were correct at the end the case. Herman catheter was removed. The patient tolerated the procedure well. He extubated in the operating room and transferred to the recovery room in stable condition. There were no complications. Date of Procedure: 08/13/25
--- NOTE | 2025-08-13 09:54 | W.ANESPOSTOP ---
Postoperative Evaluation Date, Time and Location Date Performed: 08/13/25 Time Performed: 09:54 Patient Location: Day Surgery Unit Vital Signs Most Recent Imported Vital Signs: Most Recent Vital Signs Temp Pulse Resp BP Pulse Ox 36.4 C L 54 L 14 104/64 100 08/13/25 09:33 08/13/25 09:30 08/13/25 09:30 08/13/25 09:26 08/13/25 09:30 Pain Score Most Recent Pain Score: Most Recent Pain Score Pain Level 0 08/13/25 09:33 Assessment Mental Status: Awake (Alert & Oriented to Patient Baseline) Airway and Respiratory Function: Patent airway with normal (patient baseline) respiratory exam Cardiovascular Function: Hemodynamically Stable Hydration Status: Adequately Hydrated Nausea & Vomiting: No Nausea or Vomiting Pain: Pain is tolerable per patient Peripheral Nerve Block: Patient did not receive a nerve block
== END 2025-08-13 11:00 | disposition home or self-care (01) ==
PROVIDERS: PCP Nurse Practitioner Family; Visit Provider Surgery
PROC: (CPT 49650; principal; 2025-08-13 07:30)
DX: K40.91 Unilateral inguinal hernia, without obstruction or gangrene, recurrent (principal)
CPT/HCPCS: 49651; C1781; J0131; J0690; J1100; J1885; J2003; J2405; J2704; J3475